=== PATIENT | female | born 1970 | race Caucasian/White ===

== ENCOUNTER 2019-11-19 14:48 | Emergency (ER) | payer OTHER ==
[2019-11-19 15:05] VITALS: RESP 18
[2019-11-19] MEDS ORDERED: PANTOPRAZOLE 40 MG/10 ML VIAL IVP STA (15:53)
[2019-11-19] MEDS ORDERED: SODIUM CHLORIDE 0.9% 1,000 ML IV STA (15:53)
[2019-11-19] MEDS ORDERED: DICYCLOMINE 10 MG/ML 2 ML AMP IM STA (15:53)
[2019-11-19 16:04] LABS: Basophils # (A) 0.1 k/uL (0-0.2); Basophils % (A) 0 %; Eosinophils # (A) 0.1 k/uL (0-0.7); Eosinophils % (A) 1 %; HCT 42.6 % (34.0-46.0); HGB 14.9 gm/dL (11.4-16.0); Lymphocytes # (A) 3.2 k/uL (1.0-4.8); Lymphocytes % (A) 24 %; MCH 31.5 pg (25.0-35.0); MCHC 34.8 g/dL (31.0-37.0); MCV 90.4 fL (80.0-100.0); Monocytes # (A) 0.9 k/uL (0-1.0); Monocytes % (A) 7 %; Neutrophils % (A) 66 %; Platelet Count 623 k/uL (150-450); RBC 4.72 m/uL (3.80-5.40); RDW 13.1 % (11.5-15.5); WBC 13.6 k/uL (3.8-10.6)
[2019-11-19 16:08] LABS: Appearance,Urine Clear (Clear); Bilirubin,Urine Negative (Negative); Blood,Urine Negative (Negative); Color,Urine Colorless; Glucose,Urine (UA) Negative (Negative); Ketones,Urine Negative (Negative); Leukocyte Esterase,Urine Negative (Negative); Nitrite,Urine Negative (Negative); Protein,Urine Negative (Negative); Specific Gravity,Urine 1.001 (1.001-1.035); Urobilinogen,Urine <2.0 mg/dL (<2.0)
--- NOTE | 2019-11-19 16:08 | ED ---
General Adult HPI - General Chief complaint: Abdominal Pain Stated complaint: L Side Pain Time Seen by Provider: 11/19/19 15:30 Source: patient, family, RN notes reviewed Mode of arrival: ambulatory Limitations: no limitations - History of Present Illness Initial comments: Patient is a pleasant 49-year-old female presenting to the emergency Department with complaints of left-sided abdominal discomfort. Onset of symptoms was around 8 weeks ago. Patient has had 2 CAT scans, last was a month ago. Patient has been on antibiotics 3 times. No associated nausea or vomiting. No diarrhea. Patient has had some intermittent constipation. No fevers. Patient did have similar symptoms once a few years ago associated with an infection of her intestines. Otherwise patient does not have chronic abdominal pain. Patient questions if her thyroid could be off. - Related Data Allergies Allergy/AdvReac Type Severity Reaction Status Date / Time sulfamethoxazole Allergy Rash/Hives Verified 11/19/19 15:05 [From Bactrim] trimethoprim [From Bactrim] Allergy Rash/Hives Verified 11/19/19 15:05 acetaminophen [From [place]] AdvReac Nausea & Verified 11/19/19 15:05 Vomiting hydrocodone [From [place]] AdvReac Nausea & Verified 11/19/19 15:05 Vomiting Review of Systems ROS Statement: Those systems with pertinent positive or pertinent negative responses have been documented in the HPI. ROS Other: All systems not noted in ROS Statement are negative. Constitutional: Denies: fever Eyes: Denies: eye pain ENT: Denies: ear pain Respiratory: Denies: cough Cardiovascular: Denies: chest pain Endocrine: Reports: fatigue Gastrointestinal: Reports: as per HPI, abdominal pain, constipation. Denies: nausea, vomiting Genitourinary: Denies: dysuria Musculoskeletal: Denies: back pain Skin: Denies: rash Past Medical History Past Medical History: Asthma, Diabetes Mellitus, GERD/Reflux, Hypertension History of Any Multi-Drug Resistant Organisms: None Reported Past Surgical History: Hysterectomy, Uterine Ablation Additional Past Surgical History / Comment(s): R ovarian tumor removed Past Psychological History: Anxiety, Depression Smoking Status: Current every day smoker Past Alcohol Use History: None Reported Past Drug Use History: None Reported General Exam Limitations: no limitations General appearance: alert, in no apparent distress Head exam: Present: normocephalic Eye exam: Present: normal appearance Neck exam: Present: normal inspection Respiratory exam: Present: normal lung sounds bilaterally Cardiovascular Exam: Present: regular rate, normal rhythm GI/Abdominal exam: Present: soft, tenderness (Moderate left mid upper abdominal tenderness), normal bowel sounds. Absent: distended, guarding, rebound, rigid, pulsatile mass Extremities exam: Present: normal inspection Back exam: Present: normal inspection Neurological exam: Present: alert Psychiatric exam: Present: normal affect, normal mood Skin exam: Present: normal color Course Vital Signs 11/19/19 14:58 Temperature 98.3 F Pulse Rate 91 Respiratory 18 Rate Blood Pressure 153/83 O2 Sat by Pulse 97 Oximetry Medical Decision Making - Medical Decision Making Patient reevaluated and resting comfortably in bed. Case was discussed with Dr. Lopez who did come evaluate patient for probable admission. Patient is tearful and refusing admission. Patient is made aware of abnormal lab results and CT results. Patient is offered Ativan for anxiety however still refuses admission. Family present. Patient is aware that she will have further evaluation done including GI consult. Patient does them straight medical decision making. Patient is also made aware of elevated white blood cell count and low sodium level. Despite this patient refuses admission. Patient does agree to close follow-up with her doctor as well as GI follow-up. - Lab Data Result diagrams: 11/19/19 15:30 11/19/19 15:30 Lab Results 11/19/19 11/19/19 11/19/19 Range/Units 15:30 15:30 15:30 WBC 13.6 H (3.8-10.6) k/uL RBC 4.72 (3.80-5.40) m/uL Hgb 14.9 (11.4-16.0) gm/dL Hct 42.6 (34.0-46.0) % MCV 90.4 (80.0-100.0) fL MCH 31.5 (25.0-35.0) pg MCHC 34.8 (31.0-37.0) g/dL RDW 13.1 (11.5-15.5) % Plt Count 623 H (150-450) k/uL Neutrophils % 66 % Lymphocytes % 24 % Monocytes % 7 % Eosinophils % 1 % Basophils % 0 % Neutrophils # 9.0 H (1.3-7.7) k/uL Lymphocytes # 3.2 (1.0-4.8) k/uL Monocytes # 0.9 (0-1.0) k/uL Eosinophils # 0.1 (0-0.7) k/uL Basophils # 0.1 (0-0.2) k/uL PT 9.7 (9.0-12.0) sec INR 0.9 (<1.2) APTT 27.2 (22.0-30.0) sec Sodium (137-145) mmol/L Potassium (3.5-5.1) mmol/L Chloride (98-107) mmol/L Carbon Dioxide (22-30) mmol/L Anion Gap mmol/L BUN (7-17) mg/dL Creatinine (0.52-1.04) mg/dL Est GFR (CKD-EPI)AfAm (>60 ml/min/1.73 sqM) Est GFR (CKD-EPI)NonAf (>60 ml/min/1.73 sqM) Glucose (74-99) mg/dL Calcium (8.4-10.2) mg/dL Total Bilirubin (0.2-1.3) mg/dL AST (14-36) U/L ALT (4-34) U/L Alkaline Phosphatase (38-126) U/L Total Protein (6.3-8.2) g/dL Albumin (3.5-5.0) g/dL Amylase (30-110) U/L Lipase (23-300) U/L TSH (0.465-4.680) mIU/L Free T4 (0.78-2.19) ng/dL Free T3 pg/mL (2.8-5.3) pg/ml Urine Color Colorless Urine Appearance Clear (Clear) Urine pH 7.0 (5.0-8.0) Ur Specific [place] 1.001 (1.001-1.035) Urine Protein Negative (Negative) Urine Glucose (UA) Negative (Negative) Urine Ketones Negative (Negative) Urine Blood Negative (Negative) Urine Nitrite Negative (Negative) Urine Bilirubin Negative (Negative) Urine Urobilinogen <2.0 (<2.0) mg/dL Ur Leukocyte Esterase Negative (Negative) 11/18/ Range/Units 15:30 WBC (3.8-10.6) k/uL RBC (3.80-5.40) m/uL Hgb (11.4-16.0) gm/dL Hct (34.0-46.0) % MCV (80.0-100.0) fL MCH (25.0-35.0) pg MCHC (31.0-37.0) g/dL RDW (11.5-15.5) % Plt Count (150-450) k/uL Neutrophils % % Lymphocytes % % Monocytes % % Eosinophils % % Basophils % % Neutrophils # (1.3-7.7) k/uL Lymphocytes # (1.0-4.8) k/uL Monocytes # (0-1.0) k/uL Eosinophils # (0-0.7) k/uL Basophils # (0-0.2) k/uL PT (9.0-12.0) sec INR (<1.2) APTT (22.0-30.0) sec Sodium 127 L (137-145) mmol/L Potassium 4.7 (3.5-5.1) mmol/L Chloride 95 L (98-107) mmol/L Carbon Dioxide 24 (22-30) mmol/L Anion Gap 8 mmol/L BUN 6 L (7-17) mg/dL Creatinine 0.54 (0.52-1.04) mg/dL Est GFR (CKD-EPI)AfAm >90 (>60 ml/min/1.73 sqM) Est GFR (CKD-EPI)NonAf >90 (>60 ml/min/1.73 sqM) Glucose 93 (74-99) mg/dL Calcium 9.8 (8.4-10.2) mg/dL Total Bilirubin 0.3 (0.2-1.3) mg/dL AST 26 (14-36) U/L ALT 19 (4-34) U/L Alkaline Phosphatase 111 (38-126) U/L Total Protein 7.2 (6.3-8.2) g/dL Albumin 4.1 (3.5-5.0) g/dL Amylase 42 (30-110) U/L Lipase 73 (23-300) U/L TSH 1.450 (0.465-4.680) mIU/L Free T4 1.57 (0.78-2.19) ng/dL Free T3 pg/mL 4.4 (2.8-5.3) pg/ml Urine Color Urine Appearance (Clear) Urine pH (5.0-8.0) Ur Specific [place] (1.001-1.035) Urine Protein (Negative) Urine Glucose (UA) (Negative) Urine Ketones (Negative) Urine Blood (Negative) Urine Nitrite (Negative) Urine Bilirubin (Negative) Urine Urobilinogen (<2.0) mg/dL Ur Leukocyte Esterase (Negative) - Radiology Data Radiology results: image reviewed (Computed tomography scan abdomen pelvis does not show any acute abnormality. There is a prominent left adrenal gland. Cyst, small non-simple upper pole right kidney.) Disposition Clinical Impression: Abdominal pain, Hyponatremia Disposition: HOME SELF-CARE Condition: Stable Instructions (If sedation given, give patient instructions): Abdominal Pain (ED) Additional Instructions: Please follow-up with primary care physician in the next day or 2 for recheck. Also follow-up with GI, number provided for Dr. Durant. Return for increased pain, fever, vomiting, worsening symptoms or other concerns. Please have primary care physician review CT results as well as report from today. You will need to have your sodium level rechecked within the next few days. Is patient prescribed a controlled substance at d/c from ED?: No Referrals: Luna Guzman MD [STAFF PHYSICIAN] - 1-2 days Rosemarie Vázquez MD [STAFF PHYSICIAN] - 1-2 days Time of Disposition: 17:18
[2019-11-19 16:12] LABS: ALT 19 U/L (4-34); AST 26 U/L (14-36); African American GFR (CKD) >90 (>60 ml/min/1.73 sqM); Albumin 4.1 g/dL (3.5-5.0); Alkaline Phosphatase 111 U/L (38-126); Amylase 42 U/L (30-110); Anion Gap 8 mmol/L; Blood Urea Nitrogen 6 mg/dL (7-17); Calcium 9.8 mg/dL (8.4-10.2); Carbon Dioxide 24 mmol/L (22-30); Chloride 95 mmol/L (98-107); Glucose 93 mg/dL (74-99); Non-African American GFR(CKD) >90 (>60 ml/min/1.73 sqM); Potassium 4.7 mmol/L (3.5-5.1); Sodium 127 mmol/L (137-145); Total Bilirubin 0.3 mg/dL (0.2-1.3); Total Protein 7.2 g/dL (6.3-8.2)
[2019-11-19 16:15] LABS: INR 0.9 (<1.2); Partial Thromboplastin Time 27.2 sec (22.0-30.0); Prothrombin Time 9.7 sec (9.0-12.0)
[2019-11-19 16:31] LABS: T4, Free (Free Thyroxine) 1.57 ng/dL (0.78-2.19)
--- NOTE | 2019-11-19 16:50 | CT ---
EXAMINATION TYPE: CT abdomen pelvis w con DATE OF EXAM: 11/19/2019 COMPARISON: None INDICATION: Abdominal pain x5 weeks DLP: 1432.8 mGycm, Automated exposure control for dose reduction was used. CONTRAST: 100 mL of Isovue 300. Study performed without Oral Contrast TECHNIQUE: Axial images were obtained from above the diaphragm to the pubic rami in the axial plane a t 5 mm thick sections. Reconstructed images are reviewed on the computer in the coronal plane. FINDINGS: Limited CT sections are obtained the lung bases. The lung bases are clear. CT ABDOMEN: Liver: May be a calcified granuloma within the superior right lobe liver. Liver otherwise is unremark able. Spleen: Normal Pancreas: Normal Adrenal glands: Left adrenal gland is probably thickened measuring 1.9 cm. Series 201 image 26. Gallbladder: Normal Kidneys: No masses are evident. No hydronephrosis is present. There is a 1.2 cm cyst measuring 35 H [place] units at superior pole right kidney. Delayed images were obtained through the kidneys, whi ch remain unremarkable. Aorta: Vascular calcification is within the aorta. Inferior vena cava: Normal. CT PELVIS: Loops of bowel within the abdomen and pelvis are normal. The study is performed without oral cont rast limiting bowel evaluation. Appendix: Normal as visualized. Urinary bladder: Normal. Genitourinary structures: Uterus and ovaries are not identified. Osseous structures: No suspicious lytic or sclerotic lesions. IMPRESSIONS: 1. No suspicious changes to account for patient's reported abdomen pain. 2. Prominent left adrenal gland. 3. Small nonsimple cyst upper pole right kidney
[2019-11-19] MEDS ORDERED: LORazepam 2 MG/ML INJ IV STA (16:58)
[2019-11-19] MEDS ORDERED: SODIUM CHLORIDE 0.9% 500 ML 500 ML IV STA (17:18)
[2019-11-19 17:33] VITALS: BP 148/84; PULSE 75; TEMP 98.2
== END 2019-11-19 17:30 | disposition home or self-care (01) ==
LOC: EC 14:48
DX: R10.9 Unspecified abdominal pain (principal); E87.1 Hypo-osmolality and hyponatremia; R10.812 Left upper quadrant abdominal tenderness; I10 Essential (primary) hypertension; E11.9 Type 2 diabetes mellitus without complications; D72.829 Elevated white blood cell count, unspecified; F17.200 Nicotine dependence, unspecified, uncomplicated; Z88.2 Allergy status to sulfonamides; Z88.1 Allergy status to other antibiotic agents; Z88.6 Allergy status to analgesic agent; Z88.5 Allergy status to narcotic agent; Z90.710 Acquired absence of both cervix and uterus; Z86.018 Personal history of other benign neoplasm
CPT/HCPCS: 99284; 96374; 96375; 96361; 96372; 36415; 84439; 84481; 80053; 82150; 83690; 84443; 85025; 85610; 85730; 81003; 74177; J2060; J0500; C9113; Q9967

== ENCOUNTER 2020-01-01 07:07 | Day surgery (SDC) | payer OTHER ==
[2019-12-29 15:04] VITALS: BMI 34.6
[~2020-01-01 07:07] MED LIST: LACTATED RINGERS 1,000 ML IV SCH; LIDOCAINE 1% (10MG/ML) FOR IV START INTRADERMA PRN; MIDAZOLAM 2 MG/2 ML VIAL IV PRN
[2020-01-01 07:26] VITALS: TEMP 97
[2020-01-01] MEDS ORDERED: MIDAZOLAM 2 MG/2 ML VIAL ONE (07:39)
[2020-01-01] MEDS ORDERED: PROPOFOL 10 MG/ML 20 ML VIAL IV ONE (07:39)
--- NOTE | 2020-01-01 08:13 | P.PCN ---
Date of Procedure: 01/01/20 Procedure(s) Performed: BRIEF HISTORY: Patient is a 49-year-old pleasant female scheduled for an elective colonoscopy as a part of change in bowel habits for the last few months duration. PROCEDURE PERFORMED: Colonoscopy . PREOPERATIVE DIAGNOSIS: Change in bowel habits. IV sedation per Anesthesia. PROCEDURE: After informed consent was obtained, the patient, was brought into the endoscopy unit. IV sedation was administered by Anesthesia under continuous monitoring. Digital rectal examination was normal. Initially the Olympus CF-160 flexible video colonoscope was then inserted in the rectum, gradually advanced into the cecum without any difficulty. Careful examination was performed as the scope was gradually being withdrawn. Ileocecal valve and the appendiceal orifice were visualized and appeared normal. Prep was excellent. Mucosa of the cecum, ascending colon, transverse colon, descending colon, sigmoid colon, and rectum appeared normal. Retroflexion was performed in the rectum and no lesions were seen. The patient tolerated the procedure well. IMPRESSION: Normal-appearing colon from rectum to cecum with no evidence of colorectal neoplasia. RECOMMENDATIONS: Findings of this examination were discussed with the patient as well his family. She was advised to have repeat screening endoscopy in 10 years..
[2020-01-01 08:15] VITALS: BP 103/69; PULSE 103; RESP 20
== END 2020-01-01 08:26 | disposition home or self-care (01) ==
LOC: ORWHC2ENDO 07:07
PROVIDERS: ATTEND Internal Medicine Gastroenterology
DX: R19.4 Change in bowel habit (principal); Z79.82 Long term (current) use of aspirin; Z79.899 Other long term (current) drug therapy; I10 Essential (primary) hypertension; F17.210 Nicotine dependence, cigarettes, uncomplicated; E11.9 Type 2 diabetes mellitus without complications; Z79.84 Long term (current) use of oral hypoglycemic drugs; Z98.51 Tubal ligation status; Z90.710 Acquired absence of both cervix and uterus; Z98.890 Other specified postprocedural states; Z88.5 Allergy status to narcotic agent; Z88.2 Allergy status to sulfonamides
CPT/HCPCS: 45378; J2250; J2704

== ENCOUNTER 2020-09-04 17:24 | Emergency (ER) | payer OTHER ==
[2020-09-04] MEDS ORDERED: SODIUM CHLORIDE 0.9% 500 ML 500 ML IV STA (17:44)
[2020-09-04] MEDS ORDERED: HYDROmorphone 0.5 MG/0.5 ML SYRINGE IVP STA (17:45)
[2020-09-04] MEDS ORDERED: LORazepam 2 MG/ML INJ IV STA (17:45)
--- NOTE | 2020-09-04 17:47 | ED ---
General Adult HPI - General Chief complaint: Abdominal Pain Stated complaint: UTI Time Seen by Provider: 09/04/20 17:30 Source: patient, RN notes reviewed, old records reviewed Mode of arrival: ambulatory Limitations: no limitations - History of Present Illness Initial comments: 50-year-old female presenting for evaluation of flank pain and dysuria. Patient has been treated for urinary tract infection she states that this has not improved her symptoms. She's had intermittent flank pain. She denies fever. She denies vomiting. She denies a history of renal colic or kidney stones. She does report urinary frequency. - Related Data Home Medications Medication Instructions Recorded Confirmed Bisoprolol-Hctz 10-6.25 mg [Ziac 1 tab PO DAILY 12/29/19 12/29/19 10-6.25 MG] Insulin NPH Hum/Reg Insulin Hm 45 units SQ BID-W/MEALS 12/29/19 12/29/19 [Novolin 70-30 Flexpen] LORazepam [Ativan] 0.5 mg PO BID PRN 12/29/19 12/29/19 Montelukast [Singulair] 10 mg PO HS 12/29/19 12/29/19 glipiZIDE [Glucotrol] 10 mg PO AC-BRKFST 12/29/19 12/29/19 lisinopriL [Zestril] 10 mg PO DAILY 12/29/19 01/01/20 polyethylene glycoL 3350 [Miralax] 17 gm PO Q72H 12/29/19 12/29/19 Allergies Allergy/AdvReac Type Severity Reaction Status Date / Time sulfamethoxazole Allergy Rash/Hives Verified 09/04/20 17:28 [From Bactrim] trimethoprim [From Bactrim] Allergy Rash/Hives Verified 09/04/20 17:28 acetaminophen [From [place]] AdvReac Nausea & Verified 09/04/20 17:28 Vomiting hydrocodone [From [place]] AdvReac Nausea & Verified 09/04/20 17:28 Vomiting Review of Systems ROS Statement: Those systems with pertinent positive or pertinent negative responses have been documented in the HPI. ROS Other: All systems not noted in ROS Statement are negative. Past Medical History Past Medical History: Asthma, Diabetes Mellitus, Hypertension Additional Past Medical History / Comment(s): "INTESTINAL ISSUES" History of Any Multi-Drug Resistant Organisms: None Reported Past Surgical History: Hysterectomy, Uterine Ablation Additional Past Surgical History / Comment(s): R ovarian tumor removed Past Anesthesia/Blood Transfusion Reactions: No Reported Reaction Past Psychological History: Anxiety, Depression Smoking Status: Current every day smoker Past Alcohol Use History: None Reported Past Drug Use History: None Reported - Past Family History Mother Family Medical History: No Reported History General Exam Limitations: no limitations General appearance: alert, anxious Head exam: Present: atraumatic, normocephalic Eye exam: Present: normal appearance. Absent: PERRL, EOMI ENT exam: Present: normal exam Neck exam: Present: normal inspection. Absent: tenderness, meningismus Respiratory exam: Present: normal lung sounds bilaterally. Absent: respiratory distress, wheezes Cardiovascular Exam: Present: regular rate, normal rhythm GI/Abdominal exam: Present: soft. Absent: distended, tenderness, guarding Extremities exam: Present: normal inspection, normal capillary refill. Absent: pedal edema Neurological exam: Present: alert, oriented X3, CN II-XII intact, motor sensory deficit Psychiatric exam: Present: anxious. Absent: suicidal ideation Skin exam: Present: warm, dry, intact. Absent: cyanosis, diaphoretic Course Vital Signs 09/04/20 17:25 Temperature 98.3 F Pulse Rate 108 H Respiratory 16 Rate Blood Pressure 197/117 O2 Sat by Pulse 99 Oximetry EKG Findings - EKG Comments: EKG Findings:: Normal sinus rhythm, rate 95, MS interval 134, QRS duration 88, QTC [address] segment elevation. Medical Decision Making - Medical Decision Making 50-year-old female presenting with concern for UTI, flank pain. Patient does appear anxious but otherwise well-appearing. Stable vitals. Workup is initiated, shows a leukocytosis 15.9, she does follow with hematology and has a history of leukocytosis. This is currently just being monitored. Normal electrolytes, urinalysis negative for signs of infection. I did perform CT which was negative for any acute intra-abdominal findings. Patient is reassured she will follow with her primary care physician. She will continue her antibiotics for UTI for 2 more days as prescribed. - Lab Data Result diagrams: 09/04/20 18:15 09/04/20 18:15 Lab Results 09/04/20 09/04/20 09/04/20 Range/Units 18:15 18:15 18:15 WBC 15.9 H (3.8-10.6) k/uL RBC 4.56 (3.80-5.40) m/uL Hgb 14.2 (11.4-16.0) gm/dL Hct 41.4 (34.0-46.0) % MCV 90.7 (80.0-100.0) fL MCH 31.0 (25.0-35.0) pg MCHC 34.2 (31.0-37.0) g/dL RDW 13.9 (11.5-15.5) % Plt Count 512 H (150-450) k/uL MPV 7.2 Neutrophils % 65 % Lymphocytes % 27 % Monocytes % 5 % Eosinophils % 2 % Basophils % 1 % Neutrophils # 10.3 H (1.3-7.7) k/uL Lymphocytes # 4.2 (1.0-4.8) k/uL Monocytes # 0.8 (0-1.0) k/uL Eosinophils # 0.3 (0-0.7) k/uL Basophils # 0.1 (0-0.2) k/uL PT 9.9 (9.0-12.0) sec INR 0.9 (<1.2) APTT 23.6 (22.0-30.0) sec Sodium (137-145) mmol/L Potassium (3.5-5.1) mmol/L Chloride (98-107) mmol/L Carbon Dioxide (22-30) mmol/L Anion Gap mmol/L BUN (7-17) mg/dL Creatinine (0.52-1.04) mg/dL Est GFR (CKD-EPI)AfAm (>60 ml/min/1.73 sqM) Est GFR (CKD-EPI)NonAf (>60 ml/min/1.73 sqM) Glucose (74-99) mg/dL Plasma Lactic Acid Daniel (0.7-2.0) mmol/L Calcium (8.4-10.2) mg/dL Total Bilirubin (0.2-1.3) mg/dL AST (14-36) U/L ALT (4-34) U/L Alkaline Phosphatase (38-126) U/L Total Protein (6.3-8.2) g/dL Albumin (3.5-5.0) g/dL Amylase (30-110) U/L Lipase (23-300) U/L Urine Color Colorless Urine Appearance Clear (Clear) Urine pH 6.5 (5.0-8.0) Ur Specific [place] 1.002 (1.001-1.035) Urine Protein Negative (Negative) Urine Glucose (UA) Negative (Negative) Urine Ketones Negative (Negative) Urine Blood Negative (Negative) Urine Nitrite Negative (Negative) Urine Bilirubin Negative (Negative) Urine Urobilinogen <2.0 (<2.0) mg/dL Ur Leukocyte Esterase Negative (Negative) 09/04/20 09/04/20 Range/Units 18:15 18:15 WBC (3.8-10.6) k/uL RBC (3.80-5.40) m/uL Hgb (11.4-16.0) gm/dL Hct (34.0-46.0) % MCV (80.0-100.0) fL MCH (25.0-35.0) pg MCHC (31.0-37.0) g/dL RDW (11.5-15.5) % Plt Count (150-450) k/uL MPV Neutrophils % % Lymphocytes % % Monocytes % % Eosinophils % % Basophils % % Neutrophils # (1.3-7.7) k/uL Lymphocytes # (1.0-4.8) k/uL Monocytes # (0-1.0) k/uL Eosinophils # (0-0.7) k/uL Basophils # (0-0.2) k/uL PT (9.0-12.0) sec INR (<1.2) APTT (22.0-30.0) sec Sodium 138 (137-145) mmol/L Potassium 3.9 (3.5-5.1) mmol/L Chloride 105 (98-107) mmol/L Carbon Dioxide 25 (22-30) mmol/L Anion Gap 8 mmol/L BUN 10 (7-17) mg/dL Creatinine 0.71 (0.52-1.04) mg/dL Est GFR (CKD-EPI)AfAm >90 (>60 ml/min/1.73 sqM) Est GFR (CKD-EPI)NonAf >90 (>60 ml/min/1.73 sqM) Glucose 116 H (74-99) mg/dL Plasma Lactic Acid Daniel 1.0 (0.7-2.0) mmol/L Calcium 9.8 (8.4-10.2) mg/dL Total Bilirubin 0.4 (0.2-1.3) mg/dL AST 23 (14-36) U/L ALT 18 (4-34) U/L Alkaline Phosphatase 117 (38-126) U/L Total Protein 7.1 (6.3-8.2) g/dL Albumin 4.0 (3.5-5.0) g/dL Amylase 42 (30-110) U/L Lipase 39 (23-300) U/L Urine Color Urine Appearance (Clear) Urine pH (5.0-8.0) Ur Specific [place] (1.001-1.035) Urine Protein (Negative) Urine Glucose (UA) (Negative) Urine Ketones (Negative) Urine Blood (Negative) Urine Nitrite (Negative) Urine Bilirubin (Negative) Urine Urobilinogen (<2.0) mg/dL Ur Leukocyte Esterase (Negative) Disposition Clinical Impression: Abdominal pain Disposition: HOME SELF-CARE Condition: Good Instructions (If sedation given, give patient instructions): Abdominal Pain (ED), Urinary Tract Infection in Women (ED) Additional Instructions: Please follow up with her primary care physician. Is patient prescribed a controlled substance at d/c from ED?: No Referrals: Nonstaff,Physician [Primary Care Provider] - 1-2 days Time of Disposition: 18:59
[2020-09-04 18:22] LABS: Basophils # (A) 0.1 k/uL (0-0.2); Basophils % (A) 1 %; Eosinophils # (A) 0.3 k/uL (0-0.7); Eosinophils % (A) 2 %; HCT 41.4 % (34.0-46.0); HGB 14.2 gm/dL (11.4-16.0); Lymphocytes # (A) 4.2 k/uL (1.0-4.8); Lymphocytes % (A) 27 %; MCHC 34.2 g/dL (31.0-37.0); MCV 90.7 fL (80.0-100.0); Mean Platelet Volume 7.2; Monocytes # (A) 0.8 k/uL (0-1.0); Monocytes % (A) 5 %; Neutrophils # (A) 10.3 k/uL (1.3-7.7); Neutrophils % (A) 65 %; Platelet Count 512 k/uL (150-450); RBC 4.56 m/uL (3.80-5.40); RDW 13.9 % (11.5-15.5); WBC 15.9 k/uL (3.8-10.6)
[2020-09-04 18:23] LABS: Appearance,Urine Clear (Clear); Bilirubin,Urine Negative (Negative); Blood,Urine Negative (Negative); Color,Urine Colorless; Glucose,Urine (UA) Negative (Negative); Ketones,Urine Negative (Negative); Leukocyte Esterase,Urine Negative (Negative); Nitrite,Urine Negative (Negative); PH, Urine 6.5 (5.0-8.0); Protein,Urine Negative (Negative); Specific Gravity,Urine 1.002 (1.001-1.035); Urobilinogen,Urine <2.0 mg/dL (<2.0)
[2020-09-04 18:31] LABS: ALT 18 U/L (4-34); AST 23 U/L (14-36); African American GFR (CKD) >90 (>60 ml/min/1.73 sqM); Alkaline Phosphatase 117 U/L (38-126); Amylase 42 U/L (30-110); Anion Gap 8 mmol/L; Blood Urea Nitrogen 10 mg/dL (7-17); Calcium 9.8 mg/dL (8.4-10.2); Carbon Dioxide 25 mmol/L (22-30); Chloride 105 mmol/L (98-107); Glucose 116 mg/dL (74-99); Lipase 39 U/L (23-300); Non-African American GFR(CKD) >90 (>60 ml/min/1.73 sqM); Potassium 3.9 mmol/L (3.5-5.1); Sodium 138 mmol/L (137-145); Total Bilirubin 0.4 mg/dL (0.2-1.3); Total Protein 7.1 g/dL (6.3-8.2)
[2020-09-04 18:34] LABS: INR 0.9 (<1.2); Partial Thromboplastin Time 23.6 sec (22.0-30.0); Prothrombin Time 9.9 sec (9.0-12.0)
--- NOTE | 2020-09-04 18:44 | CT ---
EXAMINATION TYPE: CT abdomen pelvis wo con DATE OF EXAM: 09/04/2020 COMPARISON: 11/19/2019. HISTORY: Right flank pain. CT DLP: 979.4 mGycm Automated exposure control for dose reduction was used. TECHNIQUE: Helical acquisition of images was performed from the lung bases through the pelvis. FINDINGS: LUNG BASES: No significant abnormality is appreciated. LIVER/GB: No significant abnormality is appreciated. PANCREAS: No significant abnormality is seen. SPLEEN: No significant abnormality is seen. ADRENALS: No acute abnormality is seen. Unchanged 1.5 cm left adrenal nodule. KIDNEYS: No bilateral hydronephrosis or nephrolithiasis. Small right renal cyst better depicted on pr ior contrast CT. FREE AIR: No free air is visualized RETROPERITONEAL ADENOPATHY: None visualized REPRODUCTIVE ORGANS: No significant abnormality is seen URINARY BLADDER: No significant abnormality is seen. PELVIC ADENOPATHY: None visualized. OSSEOUS STRUCTURES: No significant abnormality is seen. BOWEL: No significant abnormality is seen. OTHER: Moderate aortoiliac atherosclerotic disease. IMPRESSION: NO ACUTE ABNORMALITY. Chronic findings as above.
[2020-09-04 19:04] VITALS: TEMP 98.1
[2020-09-04 19:42] VITALS: BP 126/67; PULSE 80; RESP 17
== END 2020-09-04 19:43 | disposition home or self-care (01) ==
LOC: EC 17:24
DX: R10.9 Unspecified abdominal pain (principal); R30.0 Dysuria; R35.0 Frequency of micturition; D72.829 Elevated white blood cell count, unspecified; E11.9 Type 2 diabetes mellitus without complications; I10 Essential (primary) hypertension; F41.9 Anxiety disorder, unspecified; F32.9 Major depressive disorder, single episode, unspecified; F17.200 Nicotine dependence, unspecified, uncomplicated; Z79.4 Long term (current) use of insulin; Z79.899 Other long term (current) drug therapy; Z88.1 Allergy status to other antibiotic agents; Z88.2 Allergy status to sulfonamides; Z88.5 Allergy status to narcotic agent; Z90.710 Acquired absence of both cervix and uterus
CPT/HCPCS: 99285; 96374; 96375; 36415; 93005; 80053; 82150; 83605; 83690; 85025; 85610; 85730; 81003; 74176; J2060; J1170

== ENCOUNTER 2020-10-01 02:50 | Emergency (ER) | payer OTHER ==
[2020-10-01 03:05] VITALS: RESP 18
[2020-10-01 03:44] LABS: Basophils # (A) 0.1 k/uL (0-0.2); Basophils % (A) 1 %; Eosinophils # (A) 0.3 k/uL (0-0.7); Eosinophils % (A) 2 %; HGB 13.9 gm/dL (11.4-16.0); Lymphocytes # (A) 3.3 k/uL (1.0-4.8); Lymphocytes % (A) 20 %; MCH 31.6 pg (25.0-35.0); MCHC 34.8 g/dL (31.0-37.0); MCV 90.9 fL (80.0-100.0); Mean Platelet Volume 7.2; Monocytes # (A) 0.7 k/uL (0-1.0); Monocytes % (A) 4 %; Neutrophils # (A) 12.1 k/uL (1.3-7.7); Neutrophils % (A) 73 %; Platelet Count 529 k/uL (150-450); RDW 13.3 % (11.5-15.5); WBC 16.6 k/uL (3.8-10.6)
[2020-10-01 03:57] LABS: ALT 16 U/L (4-34); AST 19 U/L (14-36); African American GFR (CKD) >90 (>60 ml/min/1.73 sqM); Albumin 3.9 g/dL (3.5-5.0); Alkaline Phosphatase 122 U/L (38-126); Anion Gap 7 mmol/L; Blood Urea Nitrogen 11 mg/dL (7-17); Calcium 9.5 mg/dL (8.4-10.2); Carbon Dioxide 25 mmol/L (22-30); Chloride 102 mmol/L (98-107); Glucose 156 mg/dL (74-99); Non-African American GFR(CKD) >90 (>60 ml/min/1.73 sqM); Potassium 4.5 mmol/L (3.5-5.1); Sodium 134 mmol/L (137-145); Total Bilirubin 0.3 mg/dL (0.2-1.3); Total Protein 6.8 g/dL (6.3-8.2)
--- NOTE | 2020-10-01 03:59 | XR ---
EXAM: XR Chest, 2 Views CLINICAL HISTORY: ITS.REASON XR Reason: altered mental status TECHNIQUE: Frontal and lateral views of the chest. COMPARISON: No previous studies. FINDINGS: Lungs: No consolidative change. Pleural space: No pleural effusion. No pneumothorax. Heart: Heart is normal in size. Mediastinum: Unremarkable. Bones/joints: Osteopenia. Mild to moderate degenerative disc disease of the thoracic spine. Vasculature: Minimal atherosclerotic disease of the aortic knob. Other findings: Mild hypoaeration. IMPRESSION: 1. Minimal atherosclerotic disease. 2. Osteopenia. 3. No active disease. 4. Mild hypoaeration
--- NOTE | 2020-10-01 04:00 | CT ---
EXAM: CT Head Without Intravenous Contrast CLINICAL HISTORY: ITS.REASON CT Reason: Neuro deficit, acute, stroke suspected TECHNIQUE: Axial computed tomography images of the head/brain without intravenous contrast. CTDI is 49 mGy and DLP is 1077 mGy-cm. This CT exam was performed using one or more of the following dose reduction techniques: automated exposure control, adjustment of the mA and/or kV according to patient size, and/or use of iterative reconstruction technique. COMPARISON: No relevant prior studies available. FINDINGS: Brain: No hemorrhage or mass effect. Ventricles: No hydrocephalus. Bones/joints: Unremarkable. Soft tissues: Unremarkable. Sinuses: Unremarkable. Mastoid air cells: Clear. IMPRESSION: No acute hemorrhage, hydrocephalus, or mass effect.
[2020-10-01 04:02] LABS: INR 0.9 (<1.2); Partial Thromboplastin Time 23.8 sec (22.0-30.0); Prothrombin Time 9.5 sec (9.0-12.0)
[2020-10-01 04:13] LABS: Appearance,Urine Clear (Clear); Bilirubin,Urine Negative (Negative); Blood,Urine Negative (Negative); Color,Urine Colorless; Glucose,Urine (UA) Negative (Negative); Ketones,Urine Negative (Negative); Leukocyte Esterase,Urine Negative (Negative); Nitrite,Urine Negative (Negative); PH, Urine 6.5 (5.0-8.0); Protein,Urine Negative (Negative); Specific Gravity,Urine 1.003 (1.001-1.035); Urobilinogen,Urine <2.0 mg/dL (<2.0)
--- NOTE | 2020-10-01 04:13 | CT ---
EXAM: CT Angiography Head With Intravenous Contrast CLINICAL HISTORY: ITS.REASON CT Reason: Neuro deficit, acute, stroke suspected TECHNIQUE: Axial computed tomographic angiography images of the head with intravenous contrast. CTDI is 11.45 mGy and DLP is 330.35 mGy-cm. This CT exam was performed using one or more of the following dose reduction techniques: automated exposure control, adjustment of the mA and/or kV according to patient size, and/or use of iterative reconstruction technique. MIP reconstructed images were created and reviewed. COMPARISON: CT imaging of the head performed earlier today. FINDINGS: Right internal carotid artery: Minimal atherosclerotic disease of the intracranial segments of the internal carotid arteries. Intracranial segment is patent with no significant stenosis. No aneurysm. Right anterior cerebral artery: Unremarkable. No occlusion or significant stenosis. No aneurysm. Right middle cerebral artery: Unremarkable. No occlusion or significant stenosis. No aneurysm. Right posterior cerebral artery: The proximal anterior, middle, posterior cerebral arteries are unremarkable. No occlusion or significant stenosis. No aneurysm. Right vertebral artery: Dominant right vertebral artery. Left internal carotid artery: See above. Left anterior cerebral artery: Unremarkable. No occlusion or significant stenosis. No aneurysm. Left middle cerebral artery: Unremarkable. No occlusion or significant stenosis. No aneurysm. Left posterior cerebral artery: See above. Left vertebral artery: Unremarkable as visualized. Basilar artery: Good flow within the basilar artery. No occlusion or significant stenosis. No aneurysm. Other findings: Region of the [place] of [place] is unremarkable. IMPRESSION: 1. Atherosclerotic disease of the intracranial segments of the internal carotid arteries. 2. Otherwise, unremarkable evaluation. EXAM: CT Angiography Neck With Intravenous Contrast CLINICAL HISTORY: ITS.REASON CT Reason: Neuro deficit, acute, stroke suspected TECHNIQUE: Axial computed tomographic angiography images of the neck with intravenous contrast. CTDI is 11.45 mGy and DLP is 330.35 mGy-cm. This CT exam was performed using one or more of the following dose reduction techniques: automated exposure control, adjustment of the mA and/or kV according to patient size, and/or use of iterative reconstruction technique. MIP reconstructed images were created and reviewed. COMPARISON: CT imaging of the head performed earlier today. FINDINGS: VASCULATURE: Right common carotid artery: Good flow within the common carotid arteries. No significant stenosis. No dissection or occlusion. Right internal carotid artery: Right carotid bifurcations unremarkable. Good flow within internal carotid arteries. Extracranial segment is patent with no significant stenosis. No dissection or occlusion. Right external carotid artery: Unremarkable. No occlusion. Right vertebral artery: Origin of the vertebral arteries is unremarkable. Dominant right vertebral artery. Good flow within the vertebral arteries throughout the cervical region. No significant stenosis. No dissection or occlusion. Left common carotid artery: See above. Left internal carotid artery: 30-40% stenosis the origin of the left internal carotid artery best seen on sagittal image 16. Left external carotid artery: Unremarkable. No occlusion. Left vertebral artery: See above. Other vasculature: Atherosclerotic disease of the thoracic aortic arch. Minimal atherosclerotic disease of the left carotid bifurcation. NECK: Bones/joints: See above. Soft tissues: Unremarkable as visualized. No mass. CAROTID STENOSIS REFERENCE USING NASCET CRITERIA: % ICA stenosis = (1 - narrowest ICA diameter/diameter of distal cervical ICA) x 100. Mild - <50% stenosis. Moderate - 50-69% stenosis. Severe - 70-94% stenosis. Near occlusion - 95-99% stenosis. Occluded - 100% stenosis. IMPRESSION: 1. 30-40% luminal stenosis of the origin of the left internal carotid artery best seen on sagittal image 16. 2. Minimal atherosclerotic disease left carotid bifurcation.
--- NOTE | 2020-10-01 04:43 | ED ---
Neuro HPI - General Chief Complaint: Extremity Problem,Nontraumatic Stated Complaint: LT side weakness Time Seen by Provider: 10/01/20 03:17 Source: patient Mode of arrival: wheelchair Limitations: no limitations - History of Present Illness Is the patient presenting with stroke symptoms?: Yes Last Known Well Date: 09/30/20 Last Known Well Time: 22:00 Onset/Timin -: hour(s) Initial Comments: This patient is a 50-year-old woman who presents to be evaluated for feeling like her left arm and leg are not working properly. The patient states she was in her usual state of health until yesterday in the evening probably around 8 PM she felt a little shaky, like she may be having chills, but she was not feeling hot or cold. The patient states that she had gone to bed around 10 PM and woke up little after 2 AM to use the bathroom. She states that when she was trying to go to the bathroom and felt like her left leg and also to some degree the left arm was not working properly, like she had a loss of coordination. Patient denies head or neck pain, no change in vision, speech or swallowing. No chest pain or dyspnea. No abdominal symptoms. Location: left arm, left leg History of same: No Place: home Severity: mild Quality: weak, improving Improves With: none Worsens With: none On Anticoagulants: No Context: sudden onset Associated Symptoms: other Treatments Prior to Arrival: Aspirin - Related Data Home Medications: Home Medications Medication Instructions Recorded Confirmed Bisoprolol-Hctz 10-6.25 mg [Ziac 1 tab PO DAILY 12/29/19 12/29/19 10-6.25 MG] Insulin NPH Hum/Reg Insulin Hm 45 units SQ BID-W/MEALS 12/29/19 12/29/19 [Novolin 70-30 Flexpen] LORazepam [Ativan] 0.5 mg PO BID PRN 12/29/19 12/29/19 Montelukast [Singulair] 10 mg PO HS 12/29/19 12/29/19 glipiZIDE [Glucotrol] 10 mg PO AC-BRKFST 12/29/19 12/29/19 lisinopriL [Zestril] 10 mg PO DAILY 12/29/19 01/01/20 polyethylene glycoL 3350 [Miralax] 17 gm PO Q72H 12/29/19 12/29/19 Allergies/Adverse Reactions: Allergies Allergy/AdvReac Type Severity Reaction Status Date / Time sulfamethoxazole Allergy Rash/Hives Verified 10/01/20 03:05 [From Bactrim] trimethoprim [From Bactrim] Allergy Rash/Hives Verified 10/01/20 03:05 acetaminophen [From [place]] AdvReac Nausea & Verified 10/01/20 03:05 Vomiting hydrocodone [From [place]] AdvReac Nausea & Verified 10/01/20 03:05 Vomiting Review of Systems ROS Statement: Those systems with pertinent positive or pertinent negative responses have been documented in the HPI. ROS Other: All systems not noted in ROS Statement are negative. Constitutional: Denies: fever, chills, weakness Eyes: Denies: vision change Respiratory: Denies: cough, dyspnea Cardiovascular: Denies: chest pain, palpitations, orthopnea, edema, syncope Gastrointestinal: Denies: abdominal pain, nausea, vomiting, diarrhea Genitourinary: Denies: dysuria, hematuria Musculoskeletal: Denies: back pain Skin: Denies: rash Neurological: Reports: weakness, numbness. Denies: headache, paresthesias, confusion General Exam Limitations: no limitations General appearance: alert, in no apparent distress, anxious Head exam: Present: atraumatic, normocephalic Eye exam: Present: normal appearance. Absent: scleral icterus, conjunctival injection ENT exam: Present: normal oropharynx Neck exam: Present: normal inspection, full ROM. Absent: meningismus Respiratory exam: Present: normal lung sounds bilaterally. Absent: respiratory distress, wheezes, rales, rhonchi, stridor, accessory muscle use Cardiovascular Exam: Present: regular rate, normal rhythm, normal heart sounds. Absent: systolic murmur, diastolic murmur, rubs, gallop GI/Abdominal exam: Present: soft. Absent: distended, tenderness, guarding, rebound, rigid, mass Extremities exam: Present: normal inspection, normal capillary refill. Absent: pedal edema, calf tenderness Back exam: Present: normal inspection Neurological exam: Present: alert, oriented X3, CN II-XII intact Expanded Speech: Present: fluid speech Cranial nerves: EOM's Intact: Normal, Tongue Deviation: Normal, Facial Sensation: Normal Sensory exam: Upper Extremity Light Touch: Normal, Lower Extremity Light Touch: Normal Motor strength exam: RUE: 5, LUE: 5, RLE: 5 (There is some subjective weakness versus contralateral side still 5 out of 5), LLE: 5 (There is some subjective weakness versus contralateral side still 5 out of 5) Eye Response: (4) open spontaneously Motor Response: (6) obeys commands Verbal Response: (5) oriented [place] Total: 15 Psychiatric exam: Present: anxious Skin exam: Present: warm, dry, intact, normal color. Absent: rash Stroke MDM - Lab Data Result diagrams: 10/01/20 03:33 10/01/20 03:33 Lab Results 10/01/20 10/01/20 10/01/20 Range/Units 03:30 03:33 03:33 WBC 16.6 H (3.8-10.6) k/uL RBC 4.40 (3.80-5.40) m/uL Hgb 13.9 (11.4-16.0) gm/dL Hct 40.0 (34.0-46.0) % MCV 90.9 (80.0-100.0) fL MCH 31.6 (25.0-35.0) pg MCHC 34.8 (31.0-37.0) g/dL RDW 13.3 (11.5-15.5) % Plt Count 529 H (150-450) k/uL MPV 7.2 Neutrophils % 73 % Lymphocytes % 20 % Monocytes % 4 % Eosinophils % 2 % Basophils % 1 % Neutrophils # 12.1 H (1.3-7.7) k/uL Lymphocytes # 3.3 (1.0-4.8) k/uL Monocytes # 0.7 (0-1.0) k/uL Eosinophils # 0.3 (0-0.7) k/uL Basophils # 0.1 (0-0.2) k/uL PT 9.5 (9.0-12.0) sec INR 0.9 (<1.2) APTT 23.8 (22.0-30.0) sec Sodium (137-145) mmol/L Potassium (3.5-5.1) mmol/L Chloride (98-107) mmol/L Carbon Dioxide (22-30) mmol/L Anion Gap mmol/L BUN (7-17) mg/dL Creatinine (0.52-1.04) mg/dL Est GFR (CKD-EPI)AfAm (>60 ml/min/1.73 sqM) Est GFR (CKD-EPI)NonAf (>60 ml/min/1.73 sqM) Glucose (74-99) mg/dL Calcium (8.4-10.2) mg/dL Total Bilirubin (0.2-1.3) mg/dL AST (14-36) U/L ALT (4-34) U/L Alkaline Phosphatase (38-126) U/L Troponin I (0.000-0.034) ng/mL Total Protein (6.3-8.2) g/dL Albumin (3.5-5.0) g/dL Urine Color Colorless Urine Appearance Clear (Clear) Urine pH 6.5 (5.0-8.0) Ur Specific [place] 1.003 (1.001-1.035) Urine Protein Negative (Negative) Urine Glucose (UA) Negative (Negative) Urine Ketones Negative (Negative) Urine Blood Negative (Negative) Urine Nitrite Negative (Negative) Urine Bilirubin Negative (Negative) Urine Urobilinogen <2.0 (<2.0) mg/dL Ur Leukocyte Esterase Negative (Negative) 10/01/20 10/01/20 Range/Units 03:33 03:33 WBC (3.8-10.6) k/uL RBC (3.80-5.40) m/uL Hgb (11.4-16.0) gm/dL Hct (34.0-46.0) % MCV (80.0-100.0) fL MCH (25.0-35.0) pg MCHC (31.0-37.0) g/dL RDW (11.5-15.5) % Plt Count (150-450) k/uL MPV Neutrophils % % Lymphocytes % % Monocytes % % Eosinophils % % Basophils % % Neutrophils # (1.3-7.7) k/uL Lymphocytes # (1.0-4.8) k/uL Monocytes # (0-1.0) k/uL Eosinophils # (0-0.7) k/uL Basophils # (0-0.2) k/uL PT (9.0-12.0) sec INR (<1.2) APTT (22.0-30.0) sec Sodium 134 L (137-145) mmol/L Potassium 4.5 (3.5-5.1) mmol/L Chloride 102 (98-107) mmol/L Carbon Dioxide 25 (22-30) mmol/L Anion Gap 7 mmol/L BUN 11 (7-17) mg/dL Creatinine 0.56 (0.52-1.04) mg/dL Est GFR (CKD-EPI)AfAm >90 (>60 ml/min/1.73 sqM) Est GFR (CKD-EPI)NonAf >90 (>60 ml/min/1.73 sqM) Glucose 156 H (74-99) mg/dL Calcium 9.5 (8.4-10.2) mg/dL Total Bilirubin 0.3 (0.2-1.3) mg/dL AST 19 (14-36) U/L ALT 16 (4-34) U/L Alkaline Phosphatase 122 (38-126) U/L Troponin I <0.012 (0.000-0.034) ng/mL Total Protein 6.8 (6.3-8.2) g/dL Albumin 3.9 (3.5-5.0) g/dL Urine Color Urine Appearance (Clear) Urine pH (5.0-8.0) Ur Specific [place] (1.001-1.035) Urine Protein (Negative) Urine Glucose (UA) (Negative) Urine Ketones (Negative) Urine Blood (Negative) Urine Nitrite (Negative) Urine Bilirubin (Negative) Urine Urobilinogen (<2.0) mg/dL Ur Leukocyte Esterase (Negative) - EKG Data -: EKG Interpreted by [facility] EKG shows normal: sinus rhythm, axis (Normal), intervals (Normal), QRS complexes (Normal), ST-T waves (Normal) Rate: tachycardia (Rate 106 bpm) Past Medical History Past Medical History: Asthma, Diabetes Mellitus, Hypertension Additional Past Medical History / Comment(s): "INTESTINAL ISSUES" History of Any Multi-Drug Resistant Organisms: None Reported Past Surgical History: Hysterectomy, Uterine Ablation Additional Past Surgical History / Comment(s): R ovarian tumor removed Past Anesthesia/Blood Transfusion Reactions: No Reported Reaction Past Psychological History: Anxiety, Depression Smoking Status: Current every day smoker Past Alcohol Use History: None Reported Past Drug Use History: None Reported - Past Family History Mother Family Medical History: No Reported History Course Vital Signs 10/01/20 10/01/20 10/01/20 03:03 03:30 03:45 Temperature 98.7 F Pulse Rate 115 H 108 H 106 H Respiratory 18 18 18 Rate Blood Pressure 154/80 139/96 140/51 O2 Sat by Pulse 96 98 98 Oximetry 10/01/20 04:00 Temperature Pulse Rate 108 H Respiratory 18 Rate Blood Pressure 150/75 O2 Sat by Pulse 97 Oximetry Disposition Clinical Impression: Left-sided weakness Disposition: Left Against Medical Advice Condition: Undetermined Instructions (If sedation given, give patient instructions): Stroke (DC) Is patient prescribed a controlled substance at d/c from ED?: No Referrals: Nonstaff,Physician [Primary Care Provider] - 1-2 days Sherrill Harp MD [REFERRING] - 1-2 days
[2020-10-01 05:58] VITALS: BP 134/67; PULSE 87; TEMP 98.1
== END 2020-10-01 05:58 | disposition left against medical advice (07) ==
LOC: EC 02:50
DX: R53.1 Weakness (principal); E11.9 Type 2 diabetes mellitus without complications; I10 Essential (primary) hypertension; F17.200 Nicotine dependence, unspecified, uncomplicated; F41.9 Anxiety disorder, unspecified; F32.9 Major depressive disorder, single episode, unspecified; Z79.4 Long term (current) use of insulin; Z79.899 Other long term (current) drug therapy; Z88.2 Allergy status to sulfonamides; Z88.5 Allergy status to narcotic agent; Z88.1 Allergy status to other antibiotic agents; J45.909 Unspecified asthma, uncomplicated; Z90.710 Acquired absence of both cervix and uterus; Z53.29 Procedure and treatment not carried out because of patient's decision for other reasons
CPT/HCPCS: 99285; 36415; 93005; 80053; 84484; 85025; 85610; 85730; 81003; 71046; 70496; 70450; 70498; Q9967

== ENCOUNTER → 2020-10-20 | Outpatient (CLI) | payer OTHER ==
--- NOTE | 2020-10-25 17:32 | ECHOF ---
Referral Reason:Z86.73 MEASUREMENTS -------- HEIGHT: 162.6 cm WEIGHT: 97.5 kg BP: IVSd: 1.0 cm (0.6 - 1.1) LVIDd: 3.0 cm (3.9 - 5.3) LVPWd: 0.9 cm (0.6 - 1.1) EDV(Teich): 34 ml IVSs: 1.7 cm LVIDs: 1.8 cm LVPWs: 1.9 cm %IVS Thck: 68 % ESV(Teich): 10 ml EF(Teich): 72 % %FS: 40 % SV(Teich): 24 ml RVIDd: 2.4 cm (< 3.3) IVC: 17.71 mm LALs A4C: 4.7 cm LAAs A4C: 12.9 cm LAESV A-L A4C: 30 ml LAESV MOD A4C: 28 ml LALs A2C: 5.3 cm LAAs A2C: 14.1 cm LAESV A-L A2C: 32 ml LAESV MOD A2C: 32 ml LAESV(A-L): 33 ml LAESV Index (A-L): 16.35 ml/m Ao Diam: 2.5 cm (2.0 - 3.7) LA Diam: 3.1 cm (2.7 - 3.8) AV Cusp: 1.9 cm (1.5 - 2.6) EPSS: 0.9 cm MV E [place]: 0.51 m/s MV DecT: 180 ms MV Dec [place]: 2.9 m/s MV A [place]: 0.97 m/s MV E/A Ratio: 0.53 MV PHT: 52 ms MR Vmax: 1.10 m/s MR maxP.88 mmHg AV Vmax: 1.22 m/s AV maxP.95 mmHg TR Vmax: 1.11 m/s TR maxP.92 mmHg RAP: 5.00 mmHg RVSP: 9.92 mmHg MV EF SLOPE: 88.92 mm/s (70 - 150) MV EXCURSION: 12.68 mm (> 18.000) FINDINGS -------- This was a technically good study. The left ventricular size is normal. Left ventricular wall thickness is normal. Overall left vent ricular systolic function is normal with, an EF between 55 - 60 %. The diastolic filling pattern is normal for the age of the patient 4.55. The right ventricle is normal in size. The left atrial size is normal. Normal LA size by volume 22+/-6 ml/m2. The right atrial size is normal. Interatrial and interventricular septum intact. The aortic valve is trileaflet and appears structurally normal. The mitral valve is normal. There is trace mitral regurgitation. The tricuspid valve appears structurally normal. Trace tricuspid regurgitation present. Right glen tricular systolic pressure is normal at < 35 mmHg. There is no pulmonic regurgitation present. The aortic root size is normal. Normal inferior vena cava with normal inspiratory collapse consistent with estimated right atrial pre ssure of 5 mmHg. There is no pericardial effusion. CONCLUSIONS -------- 1. The left ventricular size is normal. 2. Left ventricular wall thickness is normal. 3. Overall left ventricular systolic function is normal with, an EF between 55 - 60 %. 4. The diastolic filling pattern is normal for the age of the patient 4.55 5. There is trace mitral regurgitation. 6. Trace tricuspid regurgitation present. 7. There is no pericardial effusion. SURVEILLANCE SENSOR OFFICER: Isabel Colon RDCS
== END | disposition home or self-care (01) ==
LOC: RADMRIMAIN 08:55
PROVIDERS: ATTEND Psychiatry & Neurology Neurology
DX: I08.1 Rheumatic disorders of both mitral and tricuspid valves (principal)
CPT/HCPCS: 93306

== ENCOUNTER → 2020-10-20 | Outpatient (CLI) | payer OTHER ==
--- NOTE | 2020-10-20 10:36 | MR ---
MR brain without contrast HISTORY: Z 86.73, left-sided weakness, history of stroke Multiplanar multisequence imaging obtained through the brain, correlation to CT brain 10/01/2020 The corpus callosum, pituitary, cervical medullary junction, cerebellopontine angles are normal. Ther e is questionable restricted diffusion involving the right layne, axial image #11, there is correlativ e hyperintensity and inversion recovery T2-weighted sequences in the layne greater on the right than o n the left, there is scattered periventricular and deep white matter hyperintensities, subcortical hy perintensities on inversion recovery T2-weighted sequences, approximately 50 lesions are present. The re is no hemorrhage or hydrocephalus. Orbits show symmetric appearance. There are normal vascular aleksey w voids. IMPRESSION: Difficult to exclude subacute infarct involving the right layne, differential diagnostic c onsiderations include multiple sclerosis in the appropriate clinical setting, vasculitis, Lyme diseas e, hypertension, migraine headaches.
== END | disposition home or self-care (01) ==
LOC: RADECHMAIN 08:45
PROVIDERS: ATTEND Psychiatry & Neurology Neurology
DX: Z86.73 Personal history of transient ischemic attack (TIA), and cerebral infarction without residual deficits (principal); I10 Essential (primary) hypertension
CPT/HCPCS: 70551

== ENCOUNTER 2020-11-05 18:34 | Emergency (ER) | payer OTHER ==
[2020-11-05 20:07] LABS: Appearance,Urine Clear (Clear); Bilirubin,Urine Negative (Negative); Blood,Urine Negative (Negative); Color,Urine Light Yellow; Glucose,Urine (UA) 1+ (Negative); Ketones,Urine Negative (Negative); Leukocyte Esterase,Urine Negative (Negative); Nitrite,Urine Negative (Negative); PH, Urine 6.5 (5.0-8.0); Protein,Urine Negative (Negative); Urobilinogen,Urine <2.0 mg/dL (<2.0)
[2020-11-05 20:30] LABS: Glucose,Whole Blood 81 mg/dL (75-99)
[2020-11-05] MEDS ORDERED: ONDANSETRON 4 MG/2 ML VIAL IVP STA (20:42)
[2020-11-05] MEDS ORDERED: MORPHINE SULFATE 4 MG/ML SYRINGE IV STA (20:42)
[2020-11-05] MEDS ORDERED: SODIUM CHLORIDE 0.9% 1,000 ML IV STA (20:42)
[2020-11-05] MEDS ORDERED: HYDROmorphone 0.5 MG/0.5 ML SYRINGE IVP STA (21:17)
--- NOTE | 2020-11-05 21:17 | ED ---
Abdominal Pain HPI - General Chief Complaint: Abdominal Pain Stated Complaint: Bloated/Abd Pain Time Seen by Provider: 11/05/20 20:37 Source: patient Mode of arrival: ambulatory Limitations: no limitations - History of Present Illness Initial Comments: 50-year-old female patient presents to the emergency department today for evaluation of right upper quadrant abdominal pain radiating through to her back. Patient states symptoms started about 3 days ago. Denies any nausea or vomiting states she has been able to eat and drink. Denies history of similar symptoms. Denies any fever or chills. Denies any chest pain or shortness of breath. Does report a history of IBS-C, denies any diarrhea. Patient denies any recent rash, cough, numbness, tingling, dizziness, weakness, hematuria, dysuria, urinary urgency, urinary frequency, headache, visual changes, or any other complaints. - Related Data Home Medications Medication Instructions Recorded Confirmed Bisoprolol-Hctz 10-6.25 mg [Ziac 1 tab PO DAILY 12/29/19 12/29/19 10-6.25 MG] Insulin NPH Hum/Reg Insulin Hm 45 units SQ BID-W/MEALS 12/29/19 12/29/19 [Novolin 70-30 Flexpen] LORazepam [Ativan] 0.5 mg PO BID PRN 12/29/19 12/29/19 Montelukast [Singulair] 10 mg PO HS 12/29/19 12/29/19 glipiZIDE [Glucotrol] 10 mg PO AC-BRKFST 12/29/19 12/29/19 lisinopriL [Zestril] 10 mg PO DAILY 12/29/19 01/01/20 polyethylene glycoL 3350 [Miralax] 17 gm PO Q72H 12/29/19 12/29/19 Previous Rx's Medication Instructions Recorded Ondansetron [Zofran ODT] 4 mg PO Q8HR PRN #10 tab 11/05/20 Allergies Allergy/AdvReac Type Severity Reaction Status Date / Time sulfamethoxazole Allergy Rash/Hives Verified 11/05/20 19:16 [From Bactrim] trimethoprim [From Bactrim] Allergy Rash/Hives Verified 11/05/20 19:16 acetaminophen [From [place]] AdvReac Nausea & Verified 11/05/20 19:16 Vomiting hydrocodone [From [place]] AdvReac Nausea & Verified 11/05/20 19:16 Vomiting Review of Systems ROS Statement: Those systems with pertinent positive or pertinent negative responses have been documented in the HPI. ROS Other: All systems not noted in ROS Statement are negative. Past Medical History Past Medical History: Asthma, CVA/TIA, Diabetes Mellitus, Hypertension Additional Past Medical History / Comment(s): "INTESTINAL ISSUES" TIA History of Any Multi-Drug Resistant Organisms: None Reported Past Surgical History: Hysterectomy, Uterine Ablation Additional Past Surgical History / Comment(s): R ovarian tumor removed Past Anesthesia/Blood Transfusion Reactions: No Reported Reaction Past Psychological History: Anxiety, Depression Smoking Status: Current every day smoker Past Alcohol Use History: None Reported Past Drug Use History: None Reported - Past Family History Mother Family Medical History: No Reported History General Exam Limitations: no limitations General appearance: alert, in no apparent distress, other (Physical well- developed, well-nourished adult female patient in no acute distress. Vital sig ns upon presentation are temperature 97.9F, pulse 93, respirations 18, blood pressure 136/85, pulse ox 98% on room air.) Eye exam: Present: normal appearance, PERRL, EOMI. Absent: scleral icterus, conjunctival injection, periorbital swelling ENT exam: Present: normal exam, normal oropharynx, mucous membranes moist Respiratory exam: Present: normal lung sounds bilaterally. Absent: respiratory distress, wheezes, rales, rhonchi, stridor Cardiovascular Exam: Present: regular rate, normal rhythm, normal heart sounds. Absent: systolic murmur, diastolic murmur, rubs, gallop, clicks GI/Abdominal exam: Present: soft, tenderness (Right upper quadrant), normal bowel sounds. Absent: distended, guarding, rebound, rigid Back exam: Absent: CVA tenderness (R), CVA tenderness (L) Neurological exam: Present: alert, oriented X3, CN II-XII intact Psychiatric exam: Present: normal affect, normal mood Skin exam: Present: warm, dry, intact, normal color. Absent: rash Course Vital Signs 11/05/20 11/05/20 19:09 21:00 Temperature 97.9 F Pulse Rate 93 82 Respiratory 18 17 Rate Blood Pressure 136/85 O2 Sat by Pulse 98 99 Oximetry Medical Decision Making - Medical Decision Making 50-year-old female patient presents to the emergency department today for ev aluation of right upper quadrant abdominal pain. Physical examination did reveal right upper quadrant tenderness. No CVA tenderness. Lungs are clear to auscultation. Labs reviewed and did reveal white blood cell count of 15.4, neutrophil count at 9.2. Sodium 135. BUN is 20, lactic acid 2.3. Lactic acid most likely elevated due to dehydration as evidenced by her other labs. She was given IV fluids. Pain medication nausea medication. Ultrasound of the right upper quadrant was obtained and was negative. I did discuss findings and results with the patient. She'll be discharged home at this time to follow-up with the primary care physician for recheck in 1-2 days. Return parameters were discussed in detail. She verbalizes understanding and agrees with this plan. Case discussed with my attending Dr. Bearden. - Lab Data Result diagrams: 11/05/20 20:42 11/05/20 20:42 Lab Results 11/05/20 11/05/20 11/05/20 Range/Units 19:19 20:29 20:42 WBC 15.4 H (3.8-10.6) k/uL RBC 4.74 (3.80-5.40) m/uL Hgb 15.0 (11.4-16.0) gm/dL Hct 42.7 (34.0-46.0) % MCV 90.1 (80.0-100.0) fL MCH 31.7 (25.0-35.0) pg MCHC 35.2 (31.0-37.0) g/dL RDW 13.1 (11.5-15.5) % Plt Count 573 H (150-450) k/uL MPV 7.9 Neutrophils % 60 % Lymphocytes % 32 % Monocytes % 5 % Eosinophils % 2 % Basophils % 1 % Neutrophils # 9.2 H (1.3-7.7) k/uL Lymphocytes # 4.9 H (1.0-4.8) k/uL Monocytes # 0.7 (0-1.0) k/uL Eosinophils # 0.3 (0-0.7) k/uL Basophils # 0.1 (0-0.2) k/uL Sodium (137-145) mmol/L Potassium (3.5-5.1) mmol/L Chloride (98-107) mmol/L Carbon Dioxide (22-30) mmol/L Anion Gap mmol/L BUN (7-17) mg/dL Creatinine (0.52-1.04) mg/dL Est GFR (CKD-EPI)AfAm (>60 ml/min/1.73 sqM) Est GFR (CKD-EPI)NonAf (>60 ml/min/1.73 sqM) Glucose (74-99) mg/dL POC Glucose (mg/dL) 81 (75-99) mg/dL POC Glu Filler Sifter Helper ID Shawna Barfield Plasma Lactic Acid Daniel (0.7-2.0) mmol/L Calcium (8.4-10.2) mg/dL Total Bilirubin (0.2-1.3) mg/dL AST (14-36) U/L ALT (4-34) U/L Alkaline Phosphatase (38-126) U/L Troponin I (0.000-0.034) ng/mL Total Protein (6.3-8.2) g/dL Albumin (3.5-5.0) g/dL Lipase (23-300) U/L Urine Color Light Yellow Urine Appearance Clear (Clear) Urine pH 6.5 (5.0-8.0) Ur Specific [place] 1.000 L (1.001-1.035) Urine Protein Negative (Negative) Urine Glucose (UA) 1+ H (Negative) Urine Ketones Negative (Negative) Urine Blood Negative (Negative) Urine Nitrite Negative (Negative) Urine Bilirubin Negative (Negative) Urine Urobilinogen <2.0 (<2.0) mg/dL Ur Leukocyte Esterase Negative (Negative) 11/05/20 11/05/20 11/05/20 Range/Units 20:42 20:42 20:42 WBC (3.8-10.6) k/uL RBC (3.80-5.40) m/uL Hgb (11.4-16.0) gm/dL Hct (34.0-46.0) % MCV (80.0-100.0) fL MCH (25.0-35.0) pg MCHC (31.0-37.0) g/dL RDW (11.5-15.5) % Plt Count (150-450) k/uL MPV Neutrophils % % Lymphocytes % % Monocytes % % Eosinophils % % Basophils % % Neutrophils # (1.3-7.7) k/uL Lymphocytes # (1.0-4.8) k/uL Monocytes # (0-1.0) k/uL Eosinophils # (0-0.7) k/uL Basophils # (0-0.2) k/uL Sodium 135 L (137-145) mmol/L Potassium 4.5 (3.5-5.1) mmol/L Chloride 102 (98-107) mmol/L Carbon Dioxide 23 (22-30) mmol/L Anion Gap 10 mmol/L BUN 20 H (7-17) mg/dL Creatinine 0.65 (0.52-1.04) mg/dL Est GFR (CKD-EPI)AfAm >90 (>60 ml/min/1.73 sqM) Est GFR (CKD-EPI)NonAf >90 (>60 ml/min/1.73 sqM) Glucose 115 H (74-99) mg/dL POC Glucose (mg/dL) (75-99) mg/dL POC Glu Filler Sifter Helper ID Plasma Lactic Acid Daniel 2.3 H* (0.7-2.0) mmol/L Calcium 10.2 (8.4-10.2) mg/dL Total Bilirubin 0.5 (0.2-1.3) mg/dL AST 27 (14-36) U/L ALT 14 (4-34) U/L Alkaline Phosphatase 109 (38-126) U/L Troponin I <0.012 (0.000-0.034) ng/mL Total Protein 7.3 (6.3-8.2) g/dL Albumin 4.3 (3.5-5.0) g/dL Lipase 255 (23-300) U/L Urine Color Urine Appearance (Clear) Urine pH (5.0-8.0) Ur Specific [place] (1.001-1.035) Urine Protein (Negative) Urine Glucose (UA) (Negative) Urine Ketones (Negative) Urine Blood (Negative) Urine Nitrite (Negative) Urine Bilirubin (Negative) Urine Urobilinogen (<2.0) mg/dL Ur Leukocyte Esterase (Negative) - EKG Data -: EKG Interpreted by [facility] EKG Comments: EKG obtained at 2246 shows normal sinus rhythm with a ventricular rate is 75, VT interval 140, QRS duration 92, QT 384, QTC 428. No evidence of ST elevation or depression. - Radiology Data Radiology results: report reviewed, image reviewed Ultrasound of the right upper quadrant was obtained. Report was reviewed in its entirety. Impression by Dr. Bennett shows no gallstones. No dilated ducts. Calcifications in the liver consistent with a granuloma. Disposition Clinical Impression: Abdominal pain Disposition: HOME SELF-CARE Condition: Good Instructions (If sedation given, give patient instructions): Abdominal Pain (ED) Additional Instructions: Take Zofran as needed. Follow-up with your primary care physician for recheck on Saturday. Return to the emergency department for any new, worsening, or concerning symptoms. Prescriptions: Ondansetron [Zofran ODT] 4 mg PO Q8HR PRN #10 tab PRN Reason: Nausea Is patient prescribed a controlled substance at d/c from ED?: No Referrals: Nonstaff,Physician [Primary Care Provider] - 1-2 days Time of Disposition: 23:01
[2020-11-05 21:23] LABS: Basophils # (A) 0.1 k/uL (0-0.2); Basophils % (A) 1 %; Eosinophils # (A) 0.3 k/uL (0-0.7); Eosinophils % (A) 2 %; HCT 42.7 % (34.0-46.0); Lymphocytes # (A) 4.9 k/uL (1.0-4.8); Lymphocytes % (A) 32 %; MCH 31.7 pg (25.0-35.0); MCHC 35.2 g/dL (31.0-37.0); MCV 90.1 fL (80.0-100.0); Mean Platelet Volume 7.9; Monocytes # (A) 0.7 k/uL (0-1.0); Monocytes % (A) 5 %; Neutrophils # (A) 9.2 k/uL (1.3-7.7); Neutrophils % (A) 60 %; Platelet Count 573 k/uL (150-450); RBC 4.74 m/uL (3.80-5.40); RDW 13.1 % (11.5-15.5); WBC 15.4 k/uL (3.8-10.6)
[2020-11-05 21:40] LABS: ALT 14 U/L (4-34); AST 27 U/L (14-36); African American GFR (CKD) >90 (>60 ml/min/1.73 sqM); Albumin 4.3 g/dL (3.5-5.0); Alkaline Phosphatase 109 U/L (38-126); Anion Gap 10 mmol/L; Blood Urea Nitrogen 20 mg/dL (7-17); Calcium 10.2 mg/dL (8.4-10.2); Carbon Dioxide 23 mmol/L (22-30); Chloride 102 mmol/L (98-107); Glucose 115 mg/dL (74-99); Lipase 255 U/L (23-300); Non-African American GFR(CKD) >90 (>60 ml/min/1.73 sqM); Potassium 4.5 mmol/L (3.5-5.1); Sodium 135 mmol/L (137-145); Total Bilirubin 0.5 mg/dL (0.2-1.3); Total Protein 7.3 g/dL (6.3-8.2)
--- NOTE | 2020-11-05 22:55 | US ---
EXAMINATION TYPE: US abdomen limited DATE OF EXAM: 11/05/2020 COMPARISON: CT CLINICAL HISTORY: Right upper quadrant pain; leukocytosis. EXAM MEASUREMENTS: Liver Length: 16.5 cm Gallbladder Wall: 0.2 cm CBD: 0.55 cm Right Kidney: 12.0 x 5.5 x 4.7 cm Pancreas: Hyperechoic Liver: small, shadowing calcification noted superior right lobe = 0.7 x 0.5 x 0.4cm (as noted on ravi or CT here) Gallbladder: wnl Evidence for sonographic Randall's sign: no CBD: wnl Right Kidney: simple, cortical cyst seen in upper pole = 1.4 x 1.3 x 1.1cm IMPRESSION: No gallstones. No dilated ducts. Calcification in the liver consistent with a granuloma.
[2020-11-05] MEDS ORDERED: ONDANSETRON 4 MG ODT STARTER PACK 2 TAB BTL PO STA (23:01)
[2020-11-05 23:48] VITALS: BP 130/69; PULSE 85; RESP 16; TEMP 98.3
== END 2020-11-05 23:48 | disposition home or self-care (01) ==
LOC: EC 18:34
DX: R10.11 Right upper quadrant pain (principal); R14.0 Abdominal distension (gaseous); J45.909 Unspecified asthma, uncomplicated; E11.9 Type 2 diabetes mellitus without complications; F41.9 Anxiety disorder, unspecified; F32.9 Major depressive disorder, single episode, unspecified; I10 Essential (primary) hypertension; Z86.73 Personal history of transient ischemic attack (TIA), and cerebral infarction without residual deficits; F17.200 Nicotine dependence, unspecified, uncomplicated; Z79.899 Other long term (current) drug therapy; Z79.4 Long term (current) use of insulin
CPT/HCPCS: 36415; 93005; 80053; 83605; 83690; 84484; 85025; 81003; 76705; 99284; 96374; 96375; 96361; J2405; S0119; J1170

== ENCOUNTER 2021-05-12 18:08 | Emergency (ER) | payer OTHER ==
[2021-05-12 18:31] VITALS: RESP 18; TEMP 98.6
[2021-05-12] MEDS ORDERED: SODIUM CHLORIDE 0.9% 1,000 ML IV ONE (19:05)
[2021-05-12] MEDS ORDERED: SODIUM CHLORIDE 0.9% 1,000 ML IV SCH (19:15)
[2021-05-12 19:32] LABS: Basophils # (A) 0.1 k/uL (0-0.2); Basophils % (A) 1 %; Eosinophils # (A) 0.2 k/uL (0-0.7); Eosinophils % (A) 1 %; HCT 43.5 % (34.0-46.0); HGB 14.4 gm/dL (11.4-16.0); Lymphocytes # (A) 5.2 k/uL (1.0-4.8); Lymphocytes % (A) 33 %; MCH 31.3 pg (25.0-35.0); MCHC 33.1 g/dL (31.0-37.0); MCV 94.5 fL (80.0-100.0); Mean Platelet Volume 7.4; Monocytes # (A) 0.7 k/uL (0-1.0); Monocytes % (A) 5 %; Neutrophils # (A) 9.3 k/uL (1.3-7.7); Neutrophils % (A) 59 %; Platelet Count 505 k/uL (150-450); RDW 13.7 % (11.5-15.5); WBC 15.7 k/uL (3.8-10.6)
[2021-05-12 19:33] LABS: Appearance,Urine Clear (Clear); Bilirubin,Urine Negative (Negative); Blood,Urine Negative (Negative); Color,Urine Light Yellow; Glucose,Urine (UA) Negative (Negative); Ketones,Urine Negative (Negative); Leukocyte Esterase,Urine Negative (Negative); Nitrite,Urine Negative (Negative); Protein,Urine Negative (Negative); Specific Gravity,Urine 1.004 (1.001-1.035); Urobilinogen,Urine <2.0 mg/dL (<2.0)
[2021-05-12 19:45] LABS: ALT 14 U/L (4-34); AST 22 U/L (14-36); African American GFR (CKD) >90 (>60 ml/min/1.73 sqM); Albumin 3.9 g/dL (3.5-5.0); Alkaline Phosphatase 104 U/L (38-126); Anion Gap 5 mmol/L; Blood Urea Nitrogen 6 mg/dL (7-17); Calcium 9.8 mg/dL (8.4-10.2); Carbon Dioxide 28 mmol/L (22-30); Chloride 105 mmol/L (98-107); Glucose 111 mg/dL (74-99); Non-African American GFR(CKD) >90 (>60 ml/min/1.73 sqM); Sodium 138 mmol/L (137-145); Total Bilirubin 0.3 mg/dL (0.2-1.3)
--- NOTE | 2021-05-12 21:22 | ED ---
General Adult HPI - General Chief complaint: Recheck/Abnormal Lab/Rx Stated complaint: dehydration Time Seen by Provider: 05/12/21 19:05 Source: patient Mode of arrival: ambulatory Limitations: no limitations - History of Present Illness Initial comments: Maddy is a 51-year-old female with a history of type 2 diabetes who presents to the emergency department today via private vehicle for evaluation of concern that she is dehydrated. Patient reports that for the past couple of days she feels like she has dry mouth and despite drinking fluids she continues to feel dehydrated. Patient states that she is diabetic and her glucose is been in the 150s she's been checking it regularly. She's been eating and drinking. She has noticed that her stool seems to be discolored and yellow which is different for her. - Related Data Home Medications Medication Instructions Recorded Confirmed Bisoprolol-Hctz 10-6.25 mg [Ziac 1 tab PO DAILY PRN 12/29/19 05/12/21 10-6.25 MG] Montelukast [Singulair] 10 mg PO HS 12/29/19 05/12/21 lisinopriL [Zestril] 10 mg PO DAILY 12/29/19 05/12/21 polyethylene glycoL 3350 [Miralax] 17 gm PO DAILY PRN 12/29/19 05/12/21 ALPRAZolam [Xanax] 0.5 mg PO DAILY PRN 05/12/21 05/12/21 Docusate [Colace] 100 mg PO BID 05/12/21 05/12/21 Fexofenadine/Pseudoephedrine 1 tab PO DAILY 05/12/21 05/12/21 [Dominique-D 12 Hour Tablet] Insulin NPH/Reg Insulin 70/30 45 unit SQ BID 05/12/21 05/12/21 [humuLIN 70/30 VIAL] glipiZIDE XL [Glucotrol Xl] 5 mg PO DAILY 05/12/21 05/12/21 Allergies Allergy/AdvReac Type Severity Reaction Status Date / Time sulfamethoxazole Allergy Rash/Hives Verified 05/12/21 20:19 [From Bactrim] trimethoprim [From Bactrim] Allergy Rash/Hives Verified 05/12/21 20:19 acetaminophen [From [place]] AdvReac Nausea & Verified 05/12/21 20:19 Vomiting hydrocodone [From [place]] AdvReac Nausea & Verified 05/12/21 20:19 Vomiting Review of Systems ROS Statement: Those systems with pertinent positive or pertinent negative responses have been documented in the HPI. ROS Other: All systems not noted in ROS Statement are negative. Past Medical History Past Medical History: Asthma, CVA/TIA, Diabetes Mellitus, Hypertension Additional Past Medical History / Comment(s): "INTESTINAL ISSUES" TIA History of Any Multi-Drug Resistant Organisms: None Reported Past Surgical History: Hysterectomy, Uterine Ablation Additional Past Surgical History / Comment(s): R ovarian tumor removed Past Anesthesia/Blood Transfusion Reactions: No Reported Reaction Past Psychological History: Anxiety, Depression Smoking Status: Current every day smoker Past Alcohol Use History: None Reported Past Drug Use History: None Reported - Past Family History Mother Family Medical History: No Reported History General Exam - General Exam Comments Initial Comments: Physical Exam GENERAL: Patient is well-developed and well-nourished. Patient is nontoxic and well-hydrated and is in no distress. HENT: Normocephalic, Atraumatic. EYES: PERRL, EOMI PULMONARY: Unlabored respirations. CARDIOVASCULAR: RRR Warm and well perfused extremities ABDOMEN: Non-distended SKIN: No rashes or bruising : Deferred NEUROLOGIC: Alert and oriented Normal speech Normal gait MUSCULOSKELETAL: Moving all extremities with no apparent injury PSYCHIATRIC: No SI/HI Limitations: no limitations Course Vital Signs 05/12/21 18:30 Temperature 98.6 F Pulse Rate 117 H Respiratory 18 Rate Blood Pressure 131/83 O2 Sat by Pulse 97 Oximetry Medical Decision Making - Medical Decision Making The patient was seen and evaluated history obtained from patient very well- appearing 51-year-old female in no acute distress complains that she feels dehydrated, labs are obtained she has mild leukocytosis and thrombocytosis, no significant electrolyte abnormalities or dehydration noted. Patient received a liter fluid she reported feeling better states that she is very hungry like to be discharged home. - Lab Data Result diagrams: 05/12/21 19:05/12/21 19:23 Lab Results 05/12/21 05/12/21 05/12/21 Range/Units 19:23 19:23 19:23 WBC 15.7 H (3.8-10.6) k/uL RBC 4.60 (3.80-5.40) m/uL Hgb 14.4 (11.4-16.0) gm/dL Hct 43.5 (34.0-46.0) % MCV 94.5 (80.0-100.0) fL MCH 31.3 (25.0-35.0) pg MCHC 33.1 (31.0-37.0) g/dL RDW 13.7 (11.5-15.5) % Plt Count 505 H (150-450) k/uL MPV 7.4 Neutrophils % 59 % Lymphocytes % 33 % Monocytes % 5 % Eosinophils % 1 % Basophils % 1 % Neutrophils # 9.3 H (1.3-7.7) k/uL Lymphocytes # 5.2 H (1.0-4.8) k/uL Monocytes # 0.7 (0-1.0) k/uL Eosinophils # 0.2 (0-0.7) k/uL Basophils # 0.1 (0-0.2) k/uL Manual Slide Review Performed Sodium 138 (137-145) mmol/L Potassium 4.0 (3.5-5.1) mmol/L Chloride 105 (98-107) mmol/L Carbon Dioxide 28 (22-30) mmol/L Anion Gap 5 mmol/L BUN 6 L (7-17) mg/dL Creatinine 0.59 (0.52-1.04) mg/dL Est GFR (CKD-EPI)AfAm >90 (>60 ml/min/1.73 sqM) Est GFR (CKD-EPI)NonAf >90 (>60 ml/min/1.73 sqM) Glucose 111 H (74-99) mg/dL Calcium 9.8 (8.4-10.2) mg/dL Total Bilirubin 0.3 (0.2-1.3) mg/dL AST 22 (14-36) U/L ALT 14 (4-34) U/L Alkaline Phosphatase 104 (38-126) U/L Total Protein 7.0 (6.3-8.2) g/dL Albumin 3.9 (3.5-5.0) g/dL Urine Color Light Yellow Urine Appearance Clear (Clear) Urine pH 7.0 (5.0-8.0) Ur Specific [place] 1.004 (1.001-1.035) Urine Protein Negative (Negative) Urine Glucose (UA) Negative (Negative) Urine Ketones Negative (Negative) Urine Blood Negative (Negative) Urine Nitrite Negative (Negative) Urine Bilirubin Negative (Negative) Urine Urobilinogen <2.0 (<2.0) mg/dL Ur Leukocyte Esterase Negative (Negative) Disposition Clinical Impression: Leukocytosis Disposition: HOME SELF-CARE Condition: Stable Additional Instructions: Were white blood cell count was mildly elevated today at 15.7, this can be related to viral illness or stress. X-ray stay hydrated and follow with her primary care physician for reevaluation. Is patient prescribed a controlled substance at d/c from ED?: No Referrals: Nonstaff,Physician [Primary Care Provider] - 1-2 days
[2021-05-12 21:30] VITALS: BP 150/94; PULSE 99
== END 2021-05-12 21:31 | disposition home or self-care (01) ==
LOC: EC 18:08
DX: D72.829 Elevated white blood cell count, unspecified (principal); J45.909 Unspecified asthma, uncomplicated; E11.9 Type 2 diabetes mellitus without complications; I10 Essential (primary) hypertension; F41.9 Anxiety disorder, unspecified; F32.9 Major depressive disorder, single episode, unspecified; F17.200 Nicotine dependence, unspecified, uncomplicated; Z79.4 Long term (current) use of insulin; Z88.1 Allergy status to other antibiotic agents; Z88.2 Allergy status to sulfonamides; Z88.5 Allergy status to narcotic agent; Z90.710 Acquired absence of both cervix and uterus; Z86.73 Personal history of transient ischemic attack (TIA), and cerebral infarction without residual deficits
CPT/HCPCS: 36415; 80053; 81003; 85025; 96360; 96361; 99284

== ENCOUNTER 2021-07-06 02:05 | Emergency (ER) | payer OTHER ==
[2021-07-06 02:13] VITALS: TEMP 98.9
[2021-07-06 02:41] LABS: Basophils # (A) 0.1 k/uL (0-0.2); Basophils % (A) 1 %; Eosinophils # (A) 0.3 k/uL (0-0.7); Eosinophils % (A) 2 %; HGB 14.1 gm/dL (11.4-16.0); Lymphocytes # (A) 4.7 k/uL (1.0-4.8); Lymphocytes % (A) 29 %; MCH 31.5 pg (25.0-35.0); MCHC 33.6 g/dL (31.0-37.0); MCV 93.9 fL (80.0-100.0); Monocytes # (A) 0.8 k/uL (0-1.0); Monocytes % (A) 5 %; Neutrophils # (A) 10.1 k/uL (1.3-7.7); Neutrophils % (A) 62 %; Platelet Count 467 k/uL (150-450); RBC 4.48 m/uL (3.80-5.40); RDW 13.2 % (11.5-15.5); WBC 16.2 k/uL (3.8-10.6)
[2021-07-06 02:47] LABS: Appearance,Urine Clear (Clear); Bilirubin,Urine Negative (Negative); Blood,Urine Negative (Negative); Color,Urine Colorless; Glucose,Urine (UA) Negative (Negative); Ketones,Urine Negative (Negative); Leukocyte Esterase,Urine Negative (Negative); Nitrite,Urine Negative (Negative); Protein,Urine Negative (Negative); Specific Gravity,Urine 1.001 (1.001-1.035); Urobilinogen,Urine <2.0 mg/dL (<2.0)
[2021-07-06 02:54] LABS: ALT 15 U/L (4-34); AST 22 U/L (14-36); African American GFR (CKD) >90 (>60 ml/min/1.73 sqM); Albumin 4.1 g/dL (3.5-5.0); Alkaline Phosphatase 115 U/L (38-126); Anion Gap 8 mmol/L; Blood Urea Nitrogen 8 mg/dL (7-17); Calcium 9.8 mg/dL (8.4-10.2); Carbon Dioxide 22 mmol/L (22-30); Chloride 100 mmol/L (98-107); Glucose 163 mg/dL (74-99); Lipase 32 U/L (23-300); Non-African American GFR(CKD) >90 (>60 ml/min/1.73 sqM); Potassium 4.6 mmol/L (3.5-5.1); Sodium 130 mmol/L (137-145); Total Bilirubin 0.4 mg/dL (0.2-1.3)
--- NOTE | 2021-07-06 03:19 | XR ---
EXAMINATION TYPE: XR KUB DATE OF EXAM: 07/06/2021 COMPARISON: NONE HISTORY: Abdominal pain TECHNIQUE: 2 views FINDINGS: There is no sign of intestinal obstruction or pneumoperitoneum. Fecal pattern is normal. Th ere is no evidence of a mass. Lung bases are clear. There are no pathologic calcifications. IMPRESSION: Nonacute abdomen.
[2021-07-06 04:21] VITALS: BP 153/94
[2021-07-06] MEDS ORDERED: ALPRAZolam 0.5 MG TAB PO STA (05:39)
--- NOTE | 2021-07-06 05:39 | ED ---
Abdominal Pain HPI - General Chief Complaint: Abdominal Pain Stated Complaint: Abdominal/Flank Pain Time Seen by Provider: 07/06/21 02:23 Source: patient Mode of arrival: ambulatory Limitations: no limitations - History of Present Illness Initial Comments: Maddy is a pleasant 51-year-old female presents the emergency department today for evaluation of couple days of diffuse abdominal cramping obstipation. Patient reports that she is currently on a second round of antibiotics for treatment of a dental infection, she did have an abscess she reports that it is open and draining now which is made her feel more sick. She's admitted she's not eating or drinking well. She has been compliant with her antibiotic she has been following with a dentist. She states that she has not had regular bowel movement in 2 days and she is usually quite regular. The antibiotic's of not causing diarrhea. She has abdominal cramping which is most prominent in the left upper and right lower quadrants as well as the left flank. No dysuria or hematuria. - Related Data Home Medications Medication Instructions Recorded Confirmed Bisoprolol-Hctz 10-6.25 mg [Ziac 1 tab PO DAILY PRN 12/29/19 05/12/21 10-6.25 MG] Montelukast [Singulair] 10 mg PO HS 12/29/19 05/12/21 lisinopriL [Zestril] 10 mg PO DAILY 12/29/19 05/12/21 polyethylene glycoL 3350 [Miralax] 17 gm PO DAILY PRN 12/29/19 05/12/21 ALPRAZolam [Xanax] 0.5 mg PO DAILY PRN 05/12/21 05/12/21 Docusate [Colace] 100 mg PO BID 05/12/21 05/12/21 Fexofenadine/Pseudoephedrine 1 tab PO DAILY 05/12/21 05/12/21 [Dominique-D 12 Hour Tablet] Insulin NPH/Reg Insulin 70/30 45 unit SQ BID 05/12/21 05/12/21 [humuLIN 70/30 VIAL] glipiZIDE XL [Glucotrol Xl] 5 mg PO DAILY 05/12/21 05/12/21 Allergies Allergy/AdvReac Type Severity Reaction Status Date / Time sulfamethoxazole Allergy Rash/Hives Verified 07/06/21 02:13 [From Bactrim] trimethoprim [From Bactrim] Allergy Rash/Hives Verified 07/06/21 02:13 acetaminophen [From [place]] AdvReac Nausea & Verified 07/06/21 02:13 Vomiting hydrocodone [From [place]] AdvReac Nausea & Verified 07/06/21 02:13 Vomiting Review of Systems ROS Statement: Those systems with pertinent positive or pertinent negative responses have been documented in the HPI. ROS Other: All systems not noted in ROS Statement are negative. Past Medical History Past Medical History: Asthma, CVA/TIA, Diabetes Mellitus, Hypertension Additional Past Medical History / Comment(s): "INTESTINAL ISSUES" TIA History of Any Multi-Drug Resistant Organisms: None Reported Past Surgical History: Hysterectomy, Uterine Ablation Additional Past Surgical History / Comment(s): R ovarian tumor removed Past Anesthesia/Blood Transfusion Reactions: No Reported Reaction Past Psychological History: Anxiety, Depression Smoking Status: Current every day smoker Past Alcohol Use History: None Reported Past Drug Use History: None Reported - Past Family History Mother Family Medical History: No Reported History General Exam - General Exam Comments Initial Comments: Physical Exam GENERAL: Patient is well-developed and well-nourished. Patient is nontoxic and well- hydrated and is in no distress. HENT: Normocephalic, Atraumatic. EYES: PERRL, EOMI PULMONARY: Unlabored respirations. No audible rales rhonchi or wheezing was noted. CARDIOVASCULAR: There is a regular rate and rhythm without any murmurs gallops or rubs. ABDOMEN: Soft and nontender with normal bowel sounds. SKIN: Skin is clear with no lesions or rashes and otherwise unremarkable. : Deferred NEUROLOGIC: Patient is alert and oriented x3. Moving all extremities spontaneously MUSCULOSKELETAL: Normal extremities with adequate strength and full range of motion. No lower extremity swelling or edema. No calf tenderness. PSYCHIATRIC: Normal psychiatric evaluation. Limitations: no limitations Course Vital Signs 07/06/21 07/06/21 07/06/21 02:10 02:51 04:19 Temperature 98.9 F Pulse Rate 117 H 104 H 106 H Respiratory 22 18 18 Rate Blood Pressure 176/113 164/86 153/94 O2 Sat by Pulse 98 95 96 Oximetry 07/06/21 05:40 Temperature Pulse Rate 109 H Respiratory 20 Rate Blood Pressure O2 Sat by Pulse 96 Oximetry Medical Decision Making - Medical Decision Making Patient was seen and evaluated, history was obtained from the patient physical exam is unremarkable patient's vital signs are unremarkable observation she is mild leukocytosis could be reactive to the dental abscess however given her diffuse abdominal pain computed tomography scan was obtained, there was some delay in reading the computed tomography scan patient did remain in the hospital for a number of hours, she got quite anxious being exposed COVID-19 she was treated with Xanax during her stay. Computed tomography scan was also no acute findings. Discussed with patient and recommended supportive care and continue her oral antibiotics outpatient follow-up. Patient comfortable with plan discharge home in stable condition. - Lab Data Result diagrams: 07/06/21 02:29 07/06/21 02:29 Lab Results 07/06/21 07/06/21 07/06/21 Range/Units 02:29 02:29 02:29 WBC 16.2 H (3.8-10.6) k/uL RBC 4.48 (3.80-5.40) m/uL Hgb 14.1 (11.4-16.0) gm/dL Hct 42.0 (34.0-46.0) % MCV 93.9 (80.0-100.0) fL MCH 31.5 (25.0-35.0) pg MCHC 33.6 (31.0-37.0) g/dL RDW 13.2 (11.5-15.5) % Plt Count 467 H (150-450) k/uL MPV 8.0 Neutrophils % 62 % Lymphocytes % 29 % Monocytes % 5 % Eosinophils % 2 % Basophils % 1 % Neutrophils # 10.1 H (1.3-7.7) k/uL Lymphocytes # 4.7 (1.0-4.8) k/uL Monocytes # 0.8 (0-1.0) k/uL Eosinophils # 0.3 (0-0.7) k/uL Basophils # 0.1 (0-0.2) k/uL Sodium 130 L (137-145) mmol/L Potassium 4.6 (3.5-5.1) mmol/L Chloride 100 (98-107) mmol/L Carbon Dioxide 22 (22-30) mmol/L Anion Gap 8 mmol/L BUN 8 (7-17) mg/dL Creatinine 0.62 (0.52-1.04) mg/dL Est GFR (CKD-EPI)AfAm >90 (>60 ml/min/1.73 sqM) Est GFR (CKD-EPI)NonAf >90 (>60 ml/min/1.73 sqM) Glucose 163 H (74-99) mg/dL Calcium 9.8 (8.4-10.2) mg/dL Total Bilirubin 0.4 (0.2-1.3) mg/dL AST 22 (14-36) U/L ALT 15 (4-34) U/L Alkaline Phosphatase 115 (38-126) U/L Total Protein 7.0 (6.3-8.2) g/dL Albumin 4.1 (3.5-5.0) g/dL Lipase 32 (23-300) U/L Urine Color Colorless Urine Appearance Clear (Clear) Urine pH 6.0 (5.0-8.0) Ur Specific [place] 1.001 (1.001-1.035) Urine Protein Negative (Negative) Urine Glucose (UA) Negative (Negative) Urine Ketones Negative (Negative) Urine Blood Negative (Negative) Urine Nitrite Negative (Negative) Urine Bilirubin Negative (Negative) Urine Urobilinogen <2.0 (<2.0) mg/dL Ur Leukocyte Esterase Negative (Negative) Disposition Clinical Impression: Abdominal pain Disposition: HOME SELF-CARE Condition: Stable Instructions (If sedation given, give patient instructions): Abdominal Pain (ED) Additional Instructions: There were no findings on your labs or CT to explain your pain, you have no signs of infection or inflammation in your abdomen. I recommend hydration and close follow up with your primary care doctor Return to the ER for any new or worsening symptoms Is patient prescribed a controlled substance at d/c from ED?: No Referrals: None,Stated [Primary Care Provider] - 1-2 days
[2021-07-06 05:51] VITALS: PULSE 109; RESP 20
--- NOTE | 2021-07-06 06:44 | CT ---
EXAM: CT Abdomen and Pelvis With Intravenous Contrast CLINICAL HISTORY: abdominal/flank pain TECHNIQUE: Axial computed tomography images of the abdomen and pelvis with intravenous contrast. CTDI is 33.97 mGy and DLP is 1658.2 mGy-cm. This CT exam was performed using one or more of the following dose reduction techniques: automated exposure control, adjustment of the mA and/or kV according to patient size, and/or use of iterative reconstruction technique. Coronal and sagittal reformatted images were created and reviewed. COMPARISON: 09-04-20 FINDINGS: Lung bases: Unremarkable. No mass. No consolidation. ABDOMEN: Liver: Subcentimeter granulomatous calcification in right middle of liver near the dome. Gallbladder and bile ducts: Unremarkable. No calcified stones. No ductal dilation. Pancreas: Unremarkable. No mass. No ductal dilation. Spleen: Unremarkable. No splenomegaly. Adrenals: 1.8 cm hypodense left adrenal nodule, likely adenoma. Kidneys and ureters: 12 mm upper pole right renal cyst. No hydronephrosis. Stomach and bowel: Unremarkable. No obstruction. No mucosal thickening. PELVIS: Appendix: Normal appendix. Bladder: Unremarkable. No mass. Reproductive: Unremarkable as visualized. ABDOMEN and PELVIS: Intraperitoneal space: Unremarkable. No free air. No significant fluid collection. Bones/joints: No acute findings. Soft tissues: Unremarkable. Vasculature: Unremarkable. No abdominal aortic aneurysm. Lymph nodes: Unremarkable. No enlarged lymph nodes. IMPRESSION: No acute findings or substantial change.
== END 2021-07-06 06:57 | disposition home or self-care (01) ==
LOC: EC 02:05
DX: R10.84 Generalized abdominal pain (principal); D72.829 Elevated white blood cell count, unspecified; F17.200 Nicotine dependence, unspecified, uncomplicated; I10 Essential (primary) hypertension; E11.9 Type 2 diabetes mellitus without complications; J45.909 Unspecified asthma, uncomplicated; Z86.73 Personal history of transient ischemic attack (TIA), and cerebral infarction without residual deficits; Z88.2 Allergy status to sulfonamides; Z88.6 Allergy status to analgesic agent; Z88.5 Allergy status to narcotic agent; Z79.84 Long term (current) use of oral hypoglycemic drugs; Z79.899 Other long term (current) drug therapy; Z79.4 Long term (current) use of insulin; Z90.711 Acquired absence of uterus with remaining cervical stump
CPT/HCPCS: 36415; 80053; 83690; 85025; 81003; 74018; 74177; 99284; Q9967

== ENCOUNTER 2021-09-15 10:54 | Emergency (ER) | payer OTHER ==
[2021-09-15 11:01] VITALS: RESP 18; TEMP 98.2
[2021-09-15] MEDS ORDERED: KETOROLAC 15 MG/ML 1 ML VIAL IM STA (11:42)
[2021-09-15] MEDS ORDERED: KETOROLAC 15 MG/ML 1 ML VIAL IVP STA (12:02)
[2021-09-15 12:37] LABS: Basophils % (A) 0 %; Eosinophils # (A) 0.1 k/uL (0-0.7); Eosinophils % (A) 1 %; HCT 42.1 % (34.0-46.0); HGB 14.3 gm/dL (11.4-16.0); Lymphocytes # (A) 2.3 k/uL (1.0-4.8); Lymphocytes % (A) 20 %; MCH 32.5 pg (25.0-35.0); MCHC 33.9 g/dL (31.0-37.0); MCV 95.9 fL (80.0-100.0); Mean Platelet Volume 7.9; Monocytes # (A) 0.6 k/uL (0-1.0); Monocytes % (A) 5 %; Neutrophils # (A) 8.6 k/uL (1.3-7.7); Neutrophils % (A) 73 %; Platelet Count 481 k/uL (150-450); RBC 4.39 m/uL (3.80-5.40); RDW 14.3 % (11.5-15.5); WBC 11.7 k/uL (3.8-10.6)
--- NOTE | 2021-09-15 12:56 | ED ---
ENT HPI - General Chief complaint: Dental/Oral Stated complaint: chills/sinus infection Time Seen by Provider: 09/15/21 11:15 Source: patient Mode of arrival: ambulatory Limitations: no limitations - History of Present Illness Initial comments: Patient is a 51-year-old female complaining of potential infection. She states she has been on various antibiotics over the last several weeks for persistent dental infection and is following with her PCP and dentist. She is currently on clindamycin and has not tried supportive pain management at home. She states that this morning she awoke with chills, lymphadenopathy, and dry mouth. She is requesting a CBC to "make sure the infection is not that bad". Patient denies fever, nausea, vomiting, chest pain, shortness of breath, headache, dysphasia, trismus, muffled voice, abdominal pain. - Related Data Home Medications Medication Instructions Recorded Confirmed Bisoprolol-Hctz 10-6.25 mg [Ziac 1 tab PO DAILY PRN 12/29/19 05/12/21 10-6.25 MG] Montelukast [Singulair] 10 mg PO HS 12/29/19 05/12/21 lisinopriL [Zestril] 10 mg PO DAILY 12/29/19 05/12/21 ALPRAZolam [Xanax] 0.5 mg PO DAILY PRN 05/12/21 05/12/21 Insulin NPH/Reg Insulin 70/30 45 unit SQ BID 05/12/21 05/12/21 [humuLIN 70/30 VIAL] glipiZIDE XL [Glucotrol Xl] 5 mg PO DAILY 05/12/21 05/12/21 Albuterol Sulfate [Ventolin HFA] 2 puff INHALATION RT-Q6H PRN 09/15/21 09/15/21 Aspirin EC [Ecotrin Low Dose] 81 mg PO DAILY 09/15/21 09/15/21 Chlorhexidine Gluconate [Periogard] 15 ml PO Q12H 09/15/21 09/15/21 Clindamycin HCl 300 mg PO Q8H 09/15/21 09/15/21 Fluconazole [Diflucan] 150 mg PO ONCE PRN 09/15/21 09/15/21 Fluticasone Nasal [place] [Flonase 2 spray EA NOSTRIL DAILY 09/15/21 09/15/21 Nasal [place]] Previous Rx's Medication Instructions Recorded Clindamycin [Cleocin] 300 mg PO TID 5 Days #15 cap 09/15/21 Allergies Allergy/AdvReac Type Severity Reaction Status Date / Time sulfamethoxazole Allergy Rash/Hives Verified 09/15/21 11:54 [From Bactrim] trimethoprim [From Bactrim] Allergy Rash/Hives Verified 09/15/21 11:54 acetaminophen [From [place]] AdvReac Nausea & Verified 09/15/21 11:54 Vomiting hydrocodone [From [place]] AdvReac Nausea & Verified 09/15/21 11:54 Vomiting Review of Systems ROS Statement: Those systems with pertinent positive or pertinent negative responses have been documented in the HPI. ROS Other: All systems not noted in ROS Statement are negative. Past Medical History Past Medical History: Asthma, CVA/TIA, Diabetes Mellitus, Hypertension Additional Past Medical History / Comment(s): "INTESTINAL ISSUES" TIA History of Any Multi-Drug Resistant Organisms: None Reported Past Surgical History: Hysterectomy, Uterine Ablation Additional Past Surgical History / Comment(s): R ovarian tumor removed Past Anesthesia/Blood Transfusion Reactions: No Reported Reaction Past Psychological History: Anxiety, Depression Smoking Status: Current every day smoker Past Alcohol Use History: None Reported Past Drug Use History: None Reported - Past Family History Mother Family Medical History: No Reported History General Exam Limitations: no limitations General appearance: alert, in no apparent distress Head exam: Present: atraumatic, normocephalic, normal inspection Eye exam: Present: normal appearance, PERRL, EOMI. Absent: scleral icterus ENT exam: Present: mucous membranes moist Expanded Mouth exam: Present: tongue normal. Absent: drooling, trismus, muffled voice Teeth exam: Present: dental caries Throat exam: negative: tonsillar erythema, tonsillomegaly, tonsillar exudate, R peritonsillar mass, L peritonsillar mass Neck exam: Present: lymphadenopathy Respiratory exam: Present: normal lung sounds bilaterally. Absent: wheezes, rales, rhonchi, stridor Cardiovascular Exam: Present: regular rate, normal rhythm, normal heart sounds. Absent: systolic murmur, diastolic murmur, rubs, gallop, clicks Neurological exam: Present: alert, oriented X3 Psychiatric exam: Present: normal affect, normal mood Skin exam: Present: intact, normal color. Absent: rash Course Vital Signs 09/15/21 09/15/21 10:59 14:00 Temperature 98.2 F Pulse Rate 111 H 89 Respiratory 18 18 Rate Blood Pressure 170/95 155/83 O2 Sat by Pulse 100 100 Oximetry - Reevaluation(s) Reevaluation #1: Reevaluated patient with Dr. Wood. Remains stable, he advised longer dose of antibiotics until her appt with oral surgery. 09/15/21 14:27 Time: 01:30 Medical Decision Making - Medical Decision Making Patient is a 51-year-old female presenting with chief complaint of dental infection. She is currently on clindamycin 300 mg 3 times a day for 5 days and began course on 09/12. She is complaining of chills and lymphadenopathy. She admits to anxiety and is requesting a CBC to know the status of her infection. On exam no abscess or notable swelling. WBC is slightly elevated at 11.7, BMP is within normal limits. She is unable to follow up with oral surgeon until 10/03, providing with longer course of clindamycin for a total of [address] days of treatment per Dr[address] Wood. Discussed use of probiotics while on antibiotics. Discussed discharge parameters. Answered all questions. Report back to ER if experiencing worsening symptoms or new onset symptoms. Patient conveyed verbal understanding and agreed to the plan. Dr. Wood is my attending - Lab Data Result diagrams: 09/15/21 12:09 09/15/21 12:50 Lab Results 09/15/21 09/15/21 Range/Units 12:09 12:50 WBC 11.7 H (3.8-10.6) k/uL RBC 4.39 (3.80-5.40) m/uL Hgb 14.3 (11.4-16.0) gm/dL Hct 42.1 (34.0-46.0) % MCV 95.9 (80.0-100.0) fL MCH 32.5 (25.0-35.0) pg MCHC 33.9 (31.0-37.0) g/dL RDW 14.3 (11.5-15.5) % Plt Count 481 H (150-450) k/uL MPV 7.9 Neutrophils % 73 % Lymphocytes % 20 % Monocytes % 5 % Eosinophils % 1 % Basophils % 0 % Neutrophils # 8.6 H (1.3-7.7) k/uL Lymphocytes # 2.3 (1.0-4.8) k/uL Monocytes # 0.6 (0-1.0) k/uL Eosinophils # 0.1 (0-0.7) k/uL Basophils # 0.0 (0-0.2) k/uL Sodium 138 (137-145) mmol/L Potassium 3.9 (3.5-5.1) mmol/L Chloride 106 (98-107) mmol/L Carbon Dioxide 28 (22-30) mmol/L Anion Gap 4 mmol/L BUN 8 (7-17) mg/dL Creatinine 0.75 (0.52-1.04) mg/dL Est GFR (CKD-EPI)AfAm >90 (>60 ml/min/1.73 sqM) Est GFR (CKD-EPI)NonAf >90 (>60 ml/min/1.73 sqM) Glucose 201 H (74-99) mg/dL Calcium 9.0 (8.4-10.2) mg/dL Disposition Clinical Impression: Toothache, Dental abscess Disposition: HOME SELF-CARE Condition: Good Instructions (If sedation given, give patient instructions): Dental Abscess (ED), Toothache (ED) Additional Instructions: Begin additional 5 days of clindamycin after first course of antibiotics is complete, for a total of 10 days of treatment. Report back to ER with any worsening symptoms or new onset symptoms. Prescriptions: Clindamycin [Cleocin] 300 mg PO TID 5 Days #15 cap Is patient prescribed a controlled substance at d/c from ED?: No Referrals: None,Stated [Primary Care Provider] - 1-2 days Time of Disposition: 13:44
[2021-09-15 13:21] LABS: African American GFR (CKD) >90 (>60 ml/min/1.73 sqM); Anion Gap 4 mmol/L; Blood Urea Nitrogen 8 mg/dL (7-17); Carbon Dioxide 28 mmol/L (22-30); Chloride 106 mmol/L (98-107); Glucose 201 mg/dL (74-99); Non-African American GFR(CKD) >90 (>60 ml/min/1.73 sqM); Potassium 3.9 mmol/L (3.5-5.1); Sodium 138 mmol/L (137-145)
[2021-09-15 14:01] VITALS: BP 155/83; PULSE 89
== END 2021-09-15 14:01 | disposition home or self-care (01) ==
LOC: EC 10:54
DX: K04.7 Periapical abscess without sinus (principal); J45.909 Unspecified asthma, uncomplicated; E11.9 Type 2 diabetes mellitus without complications; I10 Essential (primary) hypertension; F41.9 Anxiety disorder, unspecified; F32.A Depression, unspecified; Z86.73 Personal history of transient ischemic attack (TIA), and cerebral infarction without residual deficits; F17.200 Nicotine dependence, unspecified, uncomplicated; Z79.4 Long term (current) use of insulin
CPT/HCPCS: 36415; 80048; 85025; 99283; 96374; J1885

== ENCOUNTER 2022-10-23 20:28 | Emergency (ER) | payer OTHER ==
[2022-10-23 22:34] LABS: Appearance,Urine Clear (Clear); Bilirubin,Urine Negative (Negative); Blood,Urine Negative (Negative); Color,Urine Light Yellow; Glucose,Urine (UA) Negative (Negative); Ketones,Urine 1+ (Negative); Leukocyte Esterase,Urine Negative (Negative); Nitrite,Urine Negative (Negative); Protein,Urine Negative (Negative); Specific Gravity,Urine 1.005 (1.001-1.035); Urobilinogen,Urine <2.0 mg/dL (<2.0)
[2022-10-23] MEDS ORDERED: ORPHENADRINE 30 MG/ML 2 ML VIAL IM STA (22:59)
[2022-10-23] MEDS ORDERED: KETOROLAC 15 MG/ML 1 ML VIAL IM STA (22:59)
--- NOTE | 2022-10-23 23:43 | ED ---
Recheck HPI - General Chief Complaint: Recheck/Abnormal Lab/Rx Stated Complaint: Kidney Pain, Back Pain Time Seen by Provider: 10/23/22 22:40 Source: patient Mode of arrival: ambulatory Limitations: no limitations - History of Present Illness Initial Comments: Patient is a 52-year-old female presenting with chief complaint of back pain. Pain is been ongoing for the last 2 days. He does on either side of the back. No injury or trauma. No dysuria or hematuria. No fevers or chills. No nausea or vomiting. No abdominal pain. No chest pain or difficulty breathing. No loss of bowel or bladder control or saddle paresthesia. - Related Data Home Medications Medication Instructions Recorded Confirmed Bisoprolol-Hctz 10-6.25 mg [Ziac 1 tab PO DAILY 12/29/19 09/15/21 10-6.25 MG] Montelukast [Singulair] 10 mg PO DAILY 12/29/19 09/15/21 lisinopriL [Zestril] 10 mg PO DAILY 12/29/19 09/15/21 ALPRAZolam [Xanax] 0.5 mg PO DAILY PRN 05/12/21 09/15/21 Insulin NPH/Reg Insulin 70/30 45 unit SQ BID 05/12/21 09/15/21 [humuLIN 70/30 VIAL] glipiZIDE XL [Glucotrol Xl] 5 mg PO DAILY 05/12/21 09/15/21 Albuterol Sulfate [Ventolin HFA] 2 puff INHALATION RT-Q6H PRN 09/15/21 09/15/21 Aspirin EC [Ecotrin Low Dose] 81 mg PO DAILY 09/15/21 09/15/21 Chlorhexidine Gluconate [Periogard] 15 ml PO Q12H 09/15/21 09/15/21 Fluconazole [Diflucan] 150 mg PO ONCE PRN 09/15/21 09/15/21 Fluticasone Nasal [place] [Flonase 2 spray EA NOSTRIL DAILY 09/15/21 09/15/21 Nasal [place]] clindamycin HCL [Clindamycin HCl] 300 mg PO Q8H 09/15/21 09/15/21 Previous Rx's Medication Instructions Recorded Clindamycin [Cleocin] 300 mg PO TID 5 Days #15 cap 09/15/21 Cyclobenzaprine [Flexeril] 10 mg PO HS PRN #20 tab 10/23/22 Doxycycline [Vibramycin] 100 mg PO BID 7 Days #14 capsule 10/23/22 Allergies Allergy/AdvReac Type Severity Reaction Status Date / Time sulfamethoxazole Allergy Rash/Hives Verified 10/23/22 20:57 [From Bactrim] trimethoprim [From Bactrim] Allergy Rash/Hives Verified 10/23/22 20:57 acetaminophen [From [place]] AdvReac Nausea & Verified 10/23/22 20:57 Vomiting hydrocodone [From [place]] AdvReac Nausea & Verified 10/23/22 20:57 Vomiting Review of Systems ROS Statement: Those systems with pertinent positive or pertinent negative responses have been documented in the HPI. ROS Other: All systems not noted in ROS Statement are negative. Past Medical History Past Medical History: Asthma, CVA/TIA, Diabetes Mellitus, Hypertension Additional Past Medical History / Comment(s): "INTESTINAL ISSUES" TIA History of Any Multi-Drug Resistant Organisms: None Reported Past Surgical History: Hysterectomy, Uterine Ablation Additional Past Surgical History / Comment(s): R ovarian tumor removed Past Anesthesia/Blood Transfusion Reactions: No Reported Reaction Past Psychological History: Anxiety, Depression Smoking Status: Current every day smoker Past Alcohol Use History: None Reported Past Drug Use History: None Reported - Past Family History Mother Family Medical History: No Reported History General Exam Limitations: no limitations General appearance: alert, in no apparent distress Head exam: Present: atraumatic, normocephalic, normal inspection Eye exam: Present: normal appearance ENT exam: Present: normal oropharynx, mucous membranes moist, TM's normal bilaterally, other (Sinus tenderness) Neck exam: Present: normal inspection, full ROM Respiratory exam: Present: normal lung sounds bilaterally. Absent: respiratory distress, wheezes, rales, rhonchi, stridor Cardiovascular Exam: Present: regular rate, normal rhythm, normal heart sounds. Absent: systolic murmur, diastolic murmur, rubs, gallop, clicks Back exam: Present: normal inspection, paraspinal tenderness. Absent: CVA tenderness (R), CVA tenderness (L) Neurological exam: Present: alert, oriented X3, CN II-XII intact Psychiatric exam: Present: normal affect, normal mood Skin exam: Present: warm, dry, intact, normal color. Absent: rash Course Vital Signs 10/23/22 10/23/22 20:54 23:55 Temperature 98.0 F 97.9 F Pulse Rate 110 H 98 Respiratory 20 16 Rate Blood Pressure 167/91 136/91 O2 Sat by Pulse 97 96 Oximetry Medical Decision Making - Medical Decision Making Was pt. sent in by a medical professional or institution (, [facility], DATA ENTRY COORDINATOR, urgent care, hospital, or usp...) When possible be specific @ -No Did you speak to anyone other than the patient for history (EMS, parent, family, police, friend...)? What history was obtained from this source @ -No Did you review nursing and triage notes (agree or disagree)? Why? @ -I reviewed and agree with nursing and triage notes Were old charts reviewed (outside hosp., previous admission, EMS record, old EKG, old radiological studies, urgent care reports/EKG's, usp records)? Report findings @ -No old charts were reviewed Differential Diagnosis (chest pain, altered mental status, abdominal pain women, abdominal pain men, vaginal bleeding, weakness, fever, dyspnea, syncope, headache, dizziness, GI bleed, back pain, seizure, CVA, palpatations, mental health, musculoskeletal)? @ - MDM Differential Back Pain: Strain, zoster, cauda equina syndrome, epidural abscess, vertebral osteomyelitis, discitis, fracture, subluxation, disc herniation, DJD, spinal stenosis, dissection, AAA, pancreatitis, peptic ulcer disease, pyelonephritis, kidney stone this is not meant to be an all-inclusive list. EKG interpreted by me (3pts min.). @ -As above X-rays interpreted by me (1pt min.). @ -None done CT interpreted by me (1pt min.). @ -None done U/S interpreted by me (1pt. min.). @ -None done What testing was considered but not performed or refused? (CT, X-rays, U/S, labs)? Why? @ -None What meds were considered but not given or refused? Why? @ -None Did you discuss the management of the patient with other professionals (professionals i.e. [facility] Jiménez, DATA ENTRY COORDINATOR, lab, RT, psych nurse, director of social services, manager medical, teacher, highway patrol officer, assistant case manager)? Give summary @ -No Was smoking cessation discussed for >3mins.? @ -No Was critical care preformed (if so, how long)? @ -No Were there social determinants of health that impacted care today? How? (Homelessness, low income, unemployed, alcoholism, drug addiction, transportation, low edu. Level, literacy, decrease access to med. care, [facility], rehab)? @ -No Was there de-escalation of care discussed even if they declined (Discuss DNR or withdrawal of care, Hospice)? DNR status @ -No What co-morbidities impacted this encounter? (DM, HTN, Smoking, COPD, CAD, Cancer, CVA, ARF, Chemo, Hep., AIDS, mental health diagnosis, sleep apnea, morbid obesity)? @ -None Was patient admitted / discharged? Hospital course, mention meds given and route, prescriptions, significant lab abnormalities, going to OR and other pertinent info. @ -Patient is a 52-year-old female presenting with chief complaint of back pain for the last 2 days. Patient describes the pain as "kidney pain". On physical examination there is no CVA tenderness, there is paraspinal muscle tenderness without midline tenderness. Patient is also complaining of some sinus congestion and increasing sinus pain. Patient was on Augmentin and March which did not alleviate her symptoms. On physical examination there is sinus tenderness on palpation. Normal tympanic membranes and posterior pharynx. Urine shows no evidence of bleeding or infection. Back pain is likely musculoskeletal in origin. Patient was given Toradol and reported improvement in her symptoms. Patient is educated on supportive treatment of back pain at home, take Motrin and Tylenol as needed, patient was on a prescription for cyclobenzaprine. Patient was also started on doxycycline for sinusitis. Follow- up with PCP. Report back to ER with any new or worsening symptoms. Discussed return parameters and answered all questions. Patient conveyed verbal understanding and agreed to the plan. I discussed this case in detail with my attending Dr. Avalos Undiagnosed new problem with uncertain prognosis? @ -No Drug Therapy requiring intensive monitoring for toxicity (Heparin, Nitro, Insu alejandra, Cardizem)? @ -No Were any procedures done? @ -No Diagnosis/symptom? @ -Mechanical back pain Acute, or Chronic, or Acute on Chronic? @ -Acute Uncomplicated (without systemic symptoms) or Complicated (systemic symptoms)? @ -Uncomplicated Side effects of treatment? @ -No Exacerbation, Progression, or Severe Exacerbation? @ -No Poses a threat to life or bodily function? How? (Chest pain, [place], [place], pneumonia, PE, COPD, DKA, ARF, appy, cholecystitis, CVA, Diverticulitis, Homicidal, Suicidal, threat to staff... and all critical care pts) @ -No Diagnosis/symptom? @Sinusitis Acute, or Chronic, or Acute on Chronic? @Acute Uncomplicated (without systemic symptoms) or Complicated (systemic symptoms)? @Uncomplicated Side effects of treatment? @ none Exacerbation, Progression, or Severe Exacerbation] @ no Poses a threat to life or bodily function? @ no - Lab Data Lab Results 10/23/22 Range/Units 22:09 Urine Color Light Yellow Urine Appearance Clear (Clear) Urine pH 6.0 (5.0-8.0) Ur Specific [place] 1.005 (1.001-1.035) Urine Protein Negative (Negative) Urine Glucose (UA) Negative (Negative) Urine Ketones 1+ H (Negative) Urine Blood Negative (Negative) Urine Nitrite Negative (Negative) Urine Bilirubin Negative (Negative) Urine Urobilinogen <2.0 (<2.0) mg/dL Ur Leukocyte Esterase Negative (Negative) Disposition Clinical Impression: Mechanical back pain Disposition: HOME SELF-CARE Condition: Good Instructions (If sedation given, give patient instructions): Back Pain (ED), Lower Back Exercises (ED) Additional Instructions: Follow-up with PCP. Report back to ER with any new or worsening symptoms. Take Motrin and Tylenol as needed for pain control. Take medication as prescribed, do not take cyclobenzaprine before driving or operating heavy machinery as it may cause drowsiness Prescriptions: Cyclobenzaprine [Flexeril] 10 mg PO HS PRN #20 tab PRN Reason: Spasms Doxycycline [Vibramycin] 100 mg PO BID 7 Days #14 capsule Is patient prescribed a controlled substance at d/c from ED?: No Referrals: Nonstaff,Physician [Primary Care Provider] - 1-2 days Time of Disposition: 23:42
[2022-10-23 23:57] VITALS: BP 136/91; PULSE 98; RESP 16; TEMP 97.9
== END 2022-10-23 23:57 | disposition home or self-care (01) ==
LOC: EC 20:28
DX: M54.9 Dorsalgia, unspecified (principal); J45.909 Unspecified asthma, uncomplicated; E11.9 Type 2 diabetes mellitus without complications; I10 Essential (primary) hypertension; Z86.73 Personal history of transient ischemic attack (TIA), and cerebral infarction without residual deficits; F41.9 Anxiety disorder, unspecified; F32.A Depression, unspecified; F17.200 Nicotine dependence, unspecified, uncomplicated; Z88.2 Allergy status to sulfonamides; Z88.8 Allergy status to other drugs, medicaments and biological substances; Z88.6 Allergy status to analgesic agent; Z79.4 Long term (current) use of insulin; Z79.82 Long term (current) use of aspirin; Z79.899 Other long term (current) drug therapy; Z79.84 Long term (current) use of oral hypoglycemic drugs
CPT/HCPCS: 99283 ×2; 96372 ×2; 81003; J1885